=== PATIENT | male | born 1930 | race Caucasian/White ===

== ENCOUNTER 2017-08-27 07:18 | Day surgery (SDC) | payer OTHER, BC ==
[2017-08-26 12:28] VITALS: BMI 28.7
[2017-08-27] MEDS ORDERED: MIDAZOLAM HCL 2 MG/2 ML SINGLE DOSE VIAL ONE (09:20)
[2017-08-27] MEDS ORDERED: PROPOFOL 20 ML ONE ×2 (09:20→09:21)
[2017-08-27] MEDS ORDERED: SODIUM CHLORIDE 0.9% P/F 10 ML VIAL IJ ONE (09:22)
[2017-08-27] MEDS ORDERED: ceFAZolin SODIUM 1 GM VIAL ONE (09:22)
[2017-08-27] MEDS ORDERED: LIDOCAINE HCL/PF 2% SDV 5ML VIAL ONE (09:22)
[2017-08-27] MEDS ORDERED: GLYCOPYRROLATE 0.2 MG/1 ML VIAL ONE (09:29)
[2017-08-27] MEDS ORDERED: DEXAMETHASONE SOD PHOSPHATE 4 MG/1 ML VIAL ONE (09:29)
[2017-08-27] MEDS ORDERED: ceFAZolin SODIUM 1 GM VIAL IVPB ONE ×2 (09:31)
[2017-08-27] MEDS ORDERED: oxyCODONE HCL 5 MG TABLET PO PRN (09:56)
--- NOTE | 2017-08-27 09:58 | OP ---
Operative Note - Note: Operative Date: 08/27/17 Pre-Operative Diagnosis: bladder tumor Operation: bipolar TURBT Findings: papillary tumor left trigone and possible left prostatic urethra Post-Operative Diagnosis: Same as Pre-op Surgeon: Robby Camp Anesthesia: General Specimens Removed: bladder tumor Estimated Blood Loss (mls): 5 Drains & Tubes with Location: 22fr emmanuel Operative Report Dictated: Yes
[2017-08-27] MEDS ORDERED: ELECTROLYTE-148 SOLN 1,000 ML IV SCH (10:00)
[2017-08-27] MEDS ORDERED: ONDANSETRON 4 MG/2 ML VIAL IVPUSH PRN (10:05)
[2017-08-27] MEDS ORDERED: PROMETHAZINE HCL 25 MG/1 ML VIAL IVPUSH PRN (10:05)
[2017-08-27] MEDS ORDERED: LACTATED RINGERS SOLUTION 1,000 ML IV SCH (10:15)
[2017-08-27 10:55] VITALS: TEMP 98
[2017-08-27 12:30] VITALS: BP 131/66; PULSE 59
--- NOTE | 2017-08-27 14:37 | OP ---
DATE OF OPERATION: 08/27/2017 PREOPERATIVE DIAGNOSIS: Bladder tumor. POSTOPERATIVE DIAGNOSIS: Bladder tumor. PROCEDURE: Transurethral resection of bladder tumor. SURGEON: Abigail Dan MD INDICATION: Patient is an 87-year-old male with recurrent TCC of the bladder who on recent surveillance cystoscopy noted to have a recurrent tumor in the bladder. He was taken to the OR for resection. DESCRIPTION OF PROCEDURE: Patient taken to the OR, placed supine on the operating table with cardiac monitoring administered. General anesthesia was established. He was prepped and draped in dorsal lithotomy position. He was given 1 g of Ancef. At this point the 26 sheath bipolar resectoscope was inserted into urethra with the visual obturator. Anterior urethra was normal. Prostatic urethra was 3-4 cm and visually occlusive. There was also a very small what appeared to be possible papillary lesion on the right lateral lobe of the prostate noted on the way in. The bladder was then visualized. A papillary lesion was noted at the trigone in the bladder inferior to the left ureteral orifice and just superior to the bladder neck. This is resected in its entirety and sent to pathology for analysis. The base of the tumor is fulgurated. Entire inspection of bladder revealed no evidence of any residual tumors. The papillary-looking lesion on the right lateral lobe of the prostate was also resected and sent separately to pathology. All bleeding sites were fulgurated. Resectoscope was then removed and a 20-Faroese Bishop then was placed to straight drainage. Clear urine was retrieved. Patient was awakened from anesthesia and transferred to recovery room in stable condition. There were no complications. Estimated blood loss was minimal. ABIGAIL DAN M.D. [id number]
--- NOTE | 2017-08-28 15:44 | PATH ---
Surgical Pathology Report Patient Name: STEPHANI MEZA [facility]. Rec. #: [id number] /Age/Gender: 1930 (Age: 87) / M Account: [id number] Location: [facility] SURGICAL Taken: 08/27/2017 Received: 08/27/2017 Reported: 08/28/2017 Physicians: Robby Camp M.D. Specimen(s) Received A: BLADDER TUMOR B: BIOPSY OF PROSTATE URETHRA Clinical History Malignant neoplasm of overlapping sites of bladder Final Diagnosis A. BLADDER TUMOR, TUR: NONINVASIVE LOW GRADE PAPILLARY UROTHELIAL CARCINOMA. NO FLAT UROTHELIAL CARCINOMA IN SITU IDENTIFIED. NO MUSCULARIS PROPRIA/DETRUSOR MUSCLE IDENTIFIED. B. PROSTATIC URETHRA, BIOPSY: BENIGN PROSTATIC TISSUE WITH BENIGN PROSTATIC HYPERPLASIA AND CORPORA AMYLACEA. NO CARCINOMA IDENTIFIED. Electronically Signed Tone Brewer M.D. Gross Description A. Received in formalin labeled "bladder tumor," is a 0.4 cm in greatest dimension noyola soft tissue fragment. The specimen is submitted in toto in one cassette. B. Received in formalin labeled "biopsy of prostatic urethra, rule out transitional cell," is a 0.4 cm in greatest dimension noyola-pink soft tissue fragment. The specimen is submitted in toto in one cassette. DL08/27/2017 saudi08/27/2017
== END 2017-08-27 12:15 | disposition home or self-care (01) ==
LOC: JASU-SURG 07:18
PROVIDERS: ATTEND Urology
PROC: 0TBB8ZZ Excision of Bladder, Via Natural or Artificial Opening Endoscopic (ICD-10-PCS; principal; 2017-08-27 08:30)
DX: C67.9 Malignant neoplasm of bladder, unspecified (principal)
CPT/HCPCS: 88305-TC; 88307-TC; 94760

== ENCOUNTER 2017-11-12 07:32 | Day surgery (SDC) | payer OTHER, BC ==
[2017-11-12] MEDS ORDERED: ZOLEDRONIC ACID 3.5 MG in SODIUM CHLORIDE 100 ML IVPB ONE (10:00)
[2017-11-12 10:02] LABS: BASO % 0.6 % (0-2.0); EOS % 1.6 % (0-4.5); HEMOGLOBIN 14.6 GM/dL (11.7-16.9); LYMPH % 11.4 % (8-40); MCH 32.2 pg (25.7-33.7); MEAN CELL VOLUME 94.7 fl (80-96); MEAN PLT VOLUME 9.3 fl (7.5-11.1); MONO % 9.8 % (3.8-10.2); NEUT % 76.6 % (42.8-82.8); PLATELET COUNT 120 K/MM3 (134-434); RBC 4.54 M/mm3 (4.00-5.60); RDW 13.5 % (11.9-15.9); WHITE BLOOD COUNT 7.8 K/mm3 (4.0-10.0)
[2017-11-12 10:27] LABS: ALBUMIN 3.6 g/dl (3.4-5.0); ANION GAP 5 (8-16); BILIRUBIN,DIRECT 0.4 mg/dL (0.0-0.2); BILIRUBIN,TOTAL 1.5 mg/dL (0.2-1.0); BLOOD UREA NITROGEN 22 mg/dL (7-18); CHLORIDE 107 mmol/L (98-107); CO2 27 mmol/L (21-32); CREATININE 1.3 mg/dL (0.7-1.3); GLUCOSE,RANDOM 108 mg/dL (74-106); MAGNESIUM 2.3 mg/dL (1.8-2.4); POTASSIUM 3.8 mmol/L (3.5-5.1); SGOT/AST 30 U/L (15-37); SGPT/ALT 25 U/L (12-78); SODIUM 139 mmol/L (136-145); TOT PROT 6.7 g/dl (6.4-8.2)
[2017-11-12 10:30] LABS: ALK PHOS 220 U/L (45-117)
[2017-11-12] MEDS ORDERED: DEXAMETHASONE SOD PHOSPHATE 10 MG/1 ML VIAL IVPB ONE (11:30)
[2017-11-12 16:41] VITALS: TEMP 97.6
[2017-11-12 16:42] VITALS: BP 117/54; PULSE 39
== END 2017-11-12 13:00 | disposition home or self-care (01) ==
LOC: JONCCHEMO 07:32 → J7W 10:51 → JONCCHEMO 13:00
PROVIDERS: ATTEND Internal Medicine Hematology & Oncology
PROC: 3E033GC Introduction of Other Therapeutic Substance into Peripheral Vein, Percutaneous Approach (ICD-10-PCS; principal; 2017-11-12)
DX: C34.90 Malignant neoplasm of unspecified part of unspecified bronchus or lung (principal); C79.51 Secondary malignant neoplasm of bone
CPT/HCPCS: 36415; 80053; 80076; 83735; 85025; 96365; 96366; 96367; 96375; 96417; J1100; J3489

== ENCOUNTER 2017-12-14 07:19 | Day surgery (SDC) | payer OTHER, BC ==
[2017-12-14] MEDS ORDERED: ZOLEDRONIC ACID 3.5 MG in SODIUM CHLORIDE 100 ML IVPB ONE (09:00)
[2017-12-14 09:41] LABS: BASO % 0.5 % (0-2.0); EOS % 0.5 % (0-4.5); HEMATOCRIT 40.4 % (35.4-49); HEMOGLOBIN 13.7 GM/dL (11.7-16.9); LYMPH % 7.6 % (8-40); MCH 32.2 pg (25.7-33.7); MCHC 33.9 g/dl (32.0-35.9); MEAN PLT VOLUME 9.6 fl (7.5-11.1); NEUT % 79.4 % (42.8-82.8); PLATELET COUNT 63 K/MM3 (134-434); RBC 4.25 M/mm3 (4.00-5.60); RDW 14.5 % (11.9-15.9); WHITE BLOOD COUNT 6.1 K/mm3 (4.0-10.0)
[2017-12-14 10:10] LABS: ALBUMIN 3.4 g/dl (3.4-5.0); ANION GAP 5 (8-16); BLOOD UREA NITROGEN 22 mg/dL (7-18); CALCIUM 7.6 mg/dL (8.5-10.1); CHLORIDE 106 mmol/L (98-107); CO2 26 mmol/L (21-32); GLUCOSE,RANDOM 75 mg/dL (74-106); MAGNESIUM 2.6 mg/dL (1.8-2.4); POTASSIUM 4.5 mmol/L (3.5-5.1); SODIUM 137 mmol/L (136-145)
[2017-12-14 10:13] LABS: ALK PHOS 630 U/L (45-117); BILIRUBIN,DIRECT 0.2 mg/dL (0.0-0.2); BILIRUBIN,TOTAL 0.8 mg/dL (0.2-1.0); CREATININE 1.1 mg/dL (0.7-1.3); SGOT/AST 23 U/L (15-37); SGPT/ALT 30 U/L (12-78); TOT PROT 6.3 g/dl (6.4-8.2)
[2017-12-14 12:45] VITALS: TEMP 97.7
[2017-12-14 12:46] VITALS: BP 115/55; PULSE 35
== END 2017-12-14 11:40 | disposition home or self-care (01) ==
LOC: JONCCHEMO 07:19 → J7W 10:08 → JONCCHEMO 11:40
PROVIDERS: ATTEND Internal Medicine Hematology & Oncology
PROC: 3E033GC Introduction of Other Therapeutic Substance into Peripheral Vein, Percutaneous Approach (ICD-10-PCS; principal; 2017-12-14)
DX: C34.90 Malignant neoplasm of unspecified part of unspecified bronchus or lung (principal); C79.51 Secondary malignant neoplasm of bone
CPT/HCPCS: 36415; 80053; 80076; 83735; 85025; 96365; J3489

== ENCOUNTER 2018-01-11 07:48 | Day surgery (SDC) | payer OTHER, BC ==
[2018-01-11 09:04] LABS: BASO % 0.7 % (0-2.0); EOS % 0.7 % (0-4.5); HEMATOCRIT 38.7 % (35.4-49); LYMPH % 18.3 % (8-40); MCH 31.8 pg (25.7-33.7); MCHC 33.7 g/dl (32.0-35.9); MEAN CELL VOLUME 94.3 fl (80-96); MEAN PLT VOLUME 8.3 fl (7.5-11.1); MONO % 12.6 % (3.8-10.2); NEUT % 67.7 % (42.8-82.8); PLATELET COUNT 97 K/MM3 (134-434); RDW 14.4 % (11.9-15.9); WHITE BLOOD COUNT 4.2 K/mm3 (4.0-10.0)
[2018-01-11 09:34] LABS: ANION GAP 7 (8-16); BLOOD UREA NITROGEN 13 mg/dL (7-18); CALCIUM 8.3 mg/dL (8.5-10.1); CHLORIDE 107 mmol/L (98-107); CO2 27 mmol/L (21-32); CREATININE 0.8 mg/dL (0.7-1.3); GLUCOSE,RANDOM 106 mg/dL (74-106); SGOT/AST 22 U/L (15-37); SGPT/ALT 26 U/L (12-78); SODIUM 141 mmol/L (136-145)
[2018-01-11 09:36] LABS: ALK PHOS 200 U/L (45-117); BILIRUBIN,TOTAL 0.5 mg/dL (0.2-1.0); TOT PROT 5.9 g/dl (6.4-8.2)
[2018-01-11 09:57] LABS: BILIRUBIN,DIRECT 0.3 mg/dL (0.0-0.2); MAGNESIUM 2.2 mg/dL (1.8-2.4)
[2018-01-11] MEDS ORDERED: ZOLEDRONIC ACID 3.5 MG in SODIUM CHLORIDE 100 ML IVPB ONE (10:00)
[2018-01-11 10:32] VITALS: TEMP 98.2
[2018-01-11 10:33] VITALS: BP 105/47
[2018-01-11 15:46] VITALS: PULSE 46
== END 2018-01-11 11:00 | disposition home or self-care (01) ==
LOC: JONCCHEMO 07:48 → J7W 09:17 → JONCCHEMO 11:00
PROVIDERS: ATTEND Internal Medicine Hematology & Oncology
PROC: 3E033GC Introduction of Other Therapeutic Substance into Peripheral Vein, Percutaneous Approach (ICD-10-PCS; principal; 2018-01-11)
DX: C34.90 Malignant neoplasm of unspecified part of unspecified bronchus or lung (principal); C79.51 Secondary malignant neoplasm of bone
CPT/HCPCS: 36415; 80053; 80076; 83735; 85025; 96365; 96417; J3489

== ENCOUNTER 2018-02-08 08:16 | Day surgery (SDC) | payer OTHER, BC ==
[2018-02-08 08:21] VITALS: PULSE 51
[2018-02-08 09:36] LABS: BASO % 0.7 % (0-2.0); EOS % 0.8 % (0-4.5); HEMATOCRIT 37.9 % (35.4-49); HEMOGLOBIN 12.7 GM/dL (11.7-16.9); LYMPH % 22.4 % (8-40); MCH 31.9 pg (25.7-33.7); MCHC 33.5 g/dl (32.0-35.9); MONO % 15.5 % (3.8-10.2); NEUT % 60.6 % (42.8-82.8); PLATELET COUNT 92 K/MM3 (134-434); RBC 3.99 M/mm3 (4.00-5.60); WHITE BLOOD COUNT 3.3 K/mm3 (4.0-10.0)
[2018-02-08] MEDS ORDERED: ZOLEDRONIC ACID 3.5 MG in SODIUM CHLORIDE 100 ML IVPB ONE (10:00)
[2018-02-08 10:22] LABS: ALBUMIN 3.3 g/dl (3.4-5.0); ANION GAP 7 (8-16); BILIRUBIN,DIRECT 0.2 mg/dL (0.0-0.2); BLOOD UREA NITROGEN 15 mg/dL (7-18); CALCIUM 8.2 mg/dL (8.5-10.1); CHLORIDE 108 mmol/L (98-107); CO2 27 mmol/L (21-32); GLUCOSE,RANDOM 90 mg/dL (74-106); MAGNESIUM 2.3 mg/dL (1.8-2.4); POTASSIUM 4.3 mmol/L (3.5-5.1); SODIUM 142 mmol/L (136-145)
[2018-02-08 10:25] LABS: ALK PHOS 151 U/L (45-117); BILIRUBIN,TOTAL 0.7 mg/dL (0.2-1.0); CREATININE 1.1 mg/dL (0.7-1.3); SGOT/AST 20 U/L (15-37); SGPT/ALT 17 U/L (12-78); TOT PROT 6.1 g/dl (6.4-8.2)
[2018-02-08 15:47] VITALS: BP 117/61; TEMP 97.8
== END 2018-02-08 12:10 | disposition home or self-care (01) ==
LOC: JONCCHEMO 08:16 → J7W 09:17 → JONCCHEMO 12:10
PROVIDERS: ATTEND Internal Medicine Hematology & Oncology
PROC: 3E033GC Introduction of Other Therapeutic Substance into Peripheral Vein, Percutaneous Approach (ICD-10-PCS; principal; 2018-02-08)
DX: C34.90 Malignant neoplasm of unspecified part of unspecified bronchus or lung (principal); C79.51 Secondary malignant neoplasm of bone
CPT/HCPCS: 36415; 80053; 80076; 83735; 85025; 96365; 96417; J3489

== ENCOUNTER 2018-04-05 07:47 | Day surgery (SDC) | payer OTHER, BC ==
[2018-04-05] MEDS ORDERED: ZOLEDRONIC ACID 3.5 MG in SODIUM CHLORIDE 100 ML IVPB ONE (09:00)
[2018-04-05 09:06] LABS: BASO % 0.8 % (0-2.0); EOS % 0.6 % (0-4.5); HEMATOCRIT 39.7 % (35.4-49); HEMOGLOBIN 13.1 GM/dL (11.7-16.9); MCH 30.9 pg (25.7-33.7); MCHC 33.1 g/dl (32.0-35.9); MEAN CELL VOLUME 93.5 fl (80-96); MEAN PLT VOLUME 9.1 fl (7.5-11.1); MONO % 13.1 % (3.8-10.2); NEUT % 68.5 % (42.8-82.8); PLATELET COUNT 81 K/MM3 (134-434); RBC 4.24 M/mm3 (4.00-5.60); RDW 13.6 % (11.9-15.9); WHITE BLOOD COUNT 4.4 K/mm3 (4.0-10.0)
[2018-04-05 09:36] LABS: ALBUMIN 3.7 g/dl (3.4-5.0); ANION GAP 8 MMOL/L (8-16); BLOOD UREA NITROGEN 22 mg/dL (7-18); CALCIUM 8.9 mg/dL (8.5-10.1); CHLORIDE 105 mmol/L (98-107); CO2 28 mmol/L (21-32); CREATININE 0.9 mg/dL (0.7-1.3); GLUCOSE,RANDOM 89 mg/dL (74-106); MAGNESIUM 2.5 mg/dL (1.8-2.4); POTASSIUM 4.4 mmol/L (3.5-5.1); SGOT/AST 22 U/L (15-37); SGPT/ALT 18 U/L (12-78); SODIUM 141 mmol/L (136-145)
[2018-04-05 09:39] LABS: ALK PHOS 110 U/L (45-117); BILIRUBIN,TOTAL 0.6 mg/dL (0.2-1.0); TOT PROT 6.6 g/dl (6.4-8.2)
[2018-04-05 09:40] LABS: BILIRUBIN,DIRECT 0.2 mg/dL (0.0-0.2); BILIRUBIN,TOTAL 0.6 mg/dL (0.2-1.0); TOT PROT 6.7 g/dl (6.4-8.2)
[2018-04-05 09:50] VITALS: TEMP 98
[2018-04-05 14:07] VITALS: BP 123/61; PULSE 50
== END 2018-04-05 11:00 | disposition home or self-care (01) ==
LOC: JONCCHEMO 07:47 → J7W 09:43 → JONCCHEMO 11:00
PROVIDERS: ATTEND Internal Medicine Hematology & Oncology
PROC: 3E033GC Introduction of Other Therapeutic Substance into Peripheral Vein, Percutaneous Approach (ICD-10-PCS; principal; 2018-04-05)
DX: C34.90 Malignant neoplasm of unspecified part of unspecified bronchus or lung (principal); Z85.51 Personal history of malignant neoplasm of bladder
CPT/HCPCS: 36415; 80053; 80076; 83735; 85025; 96365; 96417; J3489

== ENCOUNTER 2018-05-03 07:50 | Day surgery (SDC) | payer OTHER, BC ==
[2018-05-03 09:28] LABS: BASO % 0.5 % (0-2.0); EOS % 0.7 % (0-4.5); HEMATOCRIT 38.1 % (35.4-49); HEMOGLOBIN 12.7 GM/dL (11.7-16.9); LYMPH % 18.8 % (8-40); MCH 31.2 pg (25.7-33.7); MCHC 33.4 g/dl (32.0-35.9); MEAN CELL VOLUME 93.4 fl (80-96); MEAN PLT VOLUME 9.5 fl (7.5-11.1); MONO % 11.7 % (3.8-10.2); NEUT % 68.3 % (42.8-82.8); PLATELET COUNT 84 K/MM3 (134-434); RBC 4.08 M/mm3 (4.00-5.60); WHITE BLOOD COUNT 4.4 K/mm3 (4.0-10.0)
[2018-05-03 09:55] LABS: ALBUMIN 3.6 g/dl (3.4-5.0); ALK PHOS 107 U/L (45-117); ANION GAP 3 MMOL/L (8-16); BILIRUBIN,DIRECT 0.2 mg/dL (0.0-0.2); BILIRUBIN,TOTAL 0.6 mg/dL (0.2-1); BLOOD UREA NITROGEN 19 mg/dL (7-18); CALCIUM 8.9 mg/dL (8.5-10.1); CHLORIDE 109 mmol/L (98-107); CO2 26 mmol/L (21-32); CREATININE 1.1 mg/dL (0.55-1.3); GLUCOSE,RANDOM 98 mg/dL (74-106); MAGNESIUM 2.4 mg/dL (1.8-2.4); POTASSIUM 4.8 mmol/L (3.5-5.1); SGOT/AST 18 U/L (15-37); SGPT/ALT 18 U/L (13-61); SODIUM 138 mmol/L (136-145); TOT PROT 6.6 g/dl (6.4-8.2)
[2018-05-03] MEDS ORDERED: ZOLEDRONIC ACID 3.5 MG in SODIUM CHLORIDE 100 ML IVPB ONE (10:00)
[2018-05-03 16:00] VITALS: TEMP 97.5
[2018-05-03 16:03] VITALS: BP 126/57; PULSE 54
== END 2018-05-03 11:00 | disposition home or self-care (01) ==
LOC: JONCCHEMO 07:50 → J7W 10:01 → JONCCHEMO 11:00
PROVIDERS: ATTEND Internal Medicine Hematology & Oncology
PROC: 3E033GC Introduction of Other Therapeutic Substance into Peripheral Vein, Percutaneous Approach (ICD-10-PCS; principal; 2018-05-03)
DX: C34.92 Malignant neoplasm of unspecified part of left bronchus or lung (principal); C79.51 Secondary malignant neoplasm of bone; D69.59 Other secondary thrombocytopenia
CPT/HCPCS: 36415; 80053; 80076; 83735; 85025; 96365; 96417; J3489

== ENCOUNTER 2018-05-31 07:17 | Day surgery (SDC) | payer OTHER, BC ==
[2018-05-31 09:40] LABS: BASO % 0.4 % (0-2.0); EOS % 0.4 % (0-4.5); HEMATOCRIT 38.5 % (35.4-49); HEMOGLOBIN 13.6 GM/dL (11.7-16.9); LYMPH % 15.4 % (8-40); MCH 32.6 pg (25.7-33.7); MCHC 35.3 g/dl (32.0-35.9); MEAN CELL VOLUME 92.4 fl (80-96); MEAN PLT VOLUME 9.4 fl (7.5-11.1); MONO % 12.3 % (3.8-10.2); NEUT % 71.5 % (42.8-82.8); PLATELET COUNT 98 K/MM3 (134-434); RBC 4.17 M/mm3 (4.00-5.60); RDW 14.3 % (11.9-15.9); WHITE BLOOD COUNT 5.1 K/mm3 (4.0-10.0)
[2018-05-31] MEDS ORDERED: ZOLEDRONIC ACID 3.5 MG in SODIUM CHLORIDE 100 ML IVPB ONE (10:00)
[2018-05-31 10:04] LABS: ALBUMIN 3.7 g/dl (3.4-5.0); ALK PHOS 114 U/L (45-117); ANION GAP 6 MMOL/L (8-16); BILIRUBIN,DIRECT 0.2 mg/dL (0.0-0.2); BILIRUBIN,TOTAL 0.5 mg/dL (0.2-1); BLOOD UREA NITROGEN 21 mg/dL (7-18); CALCIUM 8.9 mg/dL (8.5-10.1); CHLORIDE 103 mmol/L (98-107); CO2 29 mmol/L (21-32); GLUCOSE,RANDOM 80 mg/dL (74-106); MAGNESIUM 2.5 mg/dL (1.8-2.4); POTASSIUM 4.5 mmol/L (3.5-5.1); SGOT/AST 25 U/L (15-37); SGPT/ALT 19 U/L (13-61); SODIUM 138 mmol/L (136-145); TOT PROT 6.9 g/dl (6.4-8.2)
[2018-05-31 16:00] VITALS: BP 120/50; PULSE 52; TEMP 97.9
== END 2018-05-31 10:40 | disposition home or self-care (01) ==
LOC: JONCCHEMO 07:17 → J7W 09:49 → JONCCHEMO 10:40
PROVIDERS: ATTEND Internal Medicine Hematology & Oncology
PROC: 3E033GC Introduction of Other Therapeutic Substance into Peripheral Vein, Percutaneous Approach (ICD-10-PCS; principal; 2018-05-31)
DX: C34.92 Malignant neoplasm of unspecified part of left bronchus or lung (principal); C79.51 Secondary malignant neoplasm of bone
CPT/HCPCS: 36415; 80053; 80076; 83735; 85025; 96365; 96417; J3489

== ENCOUNTER 2018-06-28 07:20 | Day surgery (SDC) | payer OTHER, BC ==
[2018-06-28 09:03] LABS: BASO % 0.5 % (0-2.0); EOS % 1.3 % (0-4.5); HEMOGLOBIN 12.4 GM/dL (11.7-16.9); LYMPH % 12.8 % (8-40); MCH 30.3 pg (25.7-33.7); MCHC 32.6 g/dl (32.0-35.9); MEAN CELL VOLUME 92.8 fl (80-96); MEAN PLT VOLUME 8.5 fl (7.5-11.1); MONO % 12.4 % (3.8-10.2); PLATELET COUNT 106 K/MM3 (134-434); RDW 14.3 % (11.9-15.9); WHITE BLOOD COUNT 5.6 K/mm3 (4.0-10.0)
[2018-06-28 09:32] LABS: ALBUMIN 3.5 g/dl (3.4-5.0); ALK PHOS 111 U/L (45-117); ANION GAP 6 MMOL/L (8-16); BILIRUBIN,DIRECT 0.2 mg/dL (0.0-0.2); BILIRUBIN,TOTAL 0.6 mg/dL (0.2-1); BLOOD UREA NITROGEN 22 mg/dL (7-18); CALCIUM 9.2 mg/dL (8.5-10.1); CHLORIDE 105 mmol/L (98-107); CO2 29 mmol/L (21-32); CREATININE 1.1 mg/dL (0.55-1.3); GLUCOSE,RANDOM 89 mg/dL (74-106); MAGNESIUM 2.4 mg/dL (1.8-2.4); POTASSIUM 4.6 mmol/L (3.5-5.1); SGOT/AST 19 U/L (15-37); SGPT/ALT 17 U/L (13-61); SODIUM 139 mmol/L (136-145); TOT PROT 6.6 g/dl (6.4-8.2)
[2018-06-28] MEDS ORDERED: ZOLEDRONIC ACID 4 MG in SODIUM CHLORIDE 100 ML IVPB ONE (10:45)
[2018-06-28] MEDS ORDERED: SODIUM CHLORIDE 1,000 ML IV ONE (10:45)
[2018-06-28] MEDS ORDERED: HYDROCORTISONE SOD SUCCINATE 100 MG/2 ML VIAL IVPB PRN (10:49)
[2018-06-28] MEDS ORDERED: EPINEPHrine 1:10,000 (P-F SYR) 1 MG/10 ML DISP.SYRIN IM PRN (10:54)
[2018-06-28 13:01] VITALS: TEMP 97.6
[2018-06-28 13:04] VITALS: BP 111/67; PULSE 60
== END 2018-06-28 13:00 | disposition home or self-care (01) ==
LOC: JONCCHEMO 07:20 → J7W 09:42 → JONCCHEMO 13:00
PROVIDERS: ATTEND Internal Medicine Hematology & Oncology
PROC: 3E033GC Introduction of Other Therapeutic Substance into Peripheral Vein, Percutaneous Approach (ICD-10-PCS; principal; 2018-06-28)
DX: C34.92 Malignant neoplasm of unspecified part of left bronchus or lung (principal); C79.51 Secondary malignant neoplasm of bone
CPT/HCPCS: 36415; 80053; 80076; 83735; 85025; 96365; 96417; J3489

== ENCOUNTER 2018-08-02 06:15 | Day surgery (SDC) | payer OTHER, BC ==
[2018-08-02 09:41] LABS: BASO % 0.7 % (0-2.0); EOS % 1.6 % (0-4.5); HEMATOCRIT 37.6 % (35.4-49); HEMOGLOBIN 13.2 GM/dL (11.7-16.9); LYMPH % 11.7 % (8-40); MCH 32.2 pg (25.7-33.7); MCHC 35.2 g/dl (32.0-35.9); MEAN CELL VOLUME 91.5 fl (80-96); MEAN PLT VOLUME 8.6 fl (7.5-11.1); MONO % 13.4 % (3.8-10.2); NEUT % 72.6 % (42.8-82.8); PLATELET COUNT 138 K/MM3 (134-434); RBC 4.11 M/mm3 (4.00-5.60); RDW 13.8 % (11.9-15.9); WHITE BLOOD COUNT 6.7 K/mm3 (4.0-10.0)
[2018-08-02] MEDS ORDERED: ZOLEDRONIC ACID 3.5 MG in SODIUM CHLORIDE 100 ML IVPB ONE (10:00)
[2018-08-02 10:04] LABS: ALBUMIN 3.4 g/dl (3.4-5.0); ALK PHOS 114 U/L (45-117); ANION GAP 8 MMOL/L (8-16); BILIRUBIN,DIRECT 0.2 mg/dL (0.0-0.2); BILIRUBIN,TOTAL 0.6 mg/dL (0.2-1); BLOOD UREA NITROGEN 19 mg/dL (7-18); CALCIUM 8.8 mg/dL (8.5-10.1); CHLORIDE 107 mmol/L (98-107); CO2 28 mmol/L (21-32); CREATININE 1.1 mg/dL (0.55-1.3); GLUCOSE,RANDOM 84 mg/dL (74-106); MAGNESIUM 2.3 mg/dL (1.8-2.4); POTASSIUM 4.4 mmol/L (3.5-5.1); SGOT/AST 21 U/L (15-37); SGPT/ALT 17 U/L (13-61); SODIUM 144 mmol/L (136-145); TOT PROT 6.7 g/dl (6.4-8.2)
[2018-08-02 15:45] VITALS: TEMP 97.9
[2018-08-02 15:46] VITALS: BP 120/60; PULSE 55
== END 2018-08-02 12:00 | disposition home or self-care (01) ==
LOC: JONCCHEMO 06:15 → J7W 10:27 → JONCCHEMO 12:00
PROVIDERS: ATTEND Internal Medicine Hematology & Oncology
PROC: 3E033GC Introduction of Other Therapeutic Substance into Peripheral Vein, Percutaneous Approach (ICD-10-PCS; principal; 2018-08-02)
DX: C34.92 Malignant neoplasm of unspecified part of left bronchus or lung (principal); C79.51 Secondary malignant neoplasm of bone
CPT/HCPCS: 36415; 80048; 80076; 82378; 83735; 85025; 96365; 96417; J3489

== ENCOUNTER 2018-08-10 06:27 | Day surgery (SDC) | payer OTHER, BC ==
[2018-08-10] MEDS ORDERED: SODIUM CHLORIDE 250 ML IV ONE ×2 (08:00→10:00)
[2018-08-10] MEDS ORDERED: DEXAMETHASONE SODIUM PHOSPHATE 20 MG in SODIUM CHLORIDE 50 ML IVPB ONE (08:30)
[2018-08-10] MEDS ORDERED: NIVOLUMAB 200 MG, NIVOLUMAB 40 MG in SODIUM CHLORIDE 100 ML IVPB ONE (09:00)
[2018-08-10 09:50] LABS: BASO % 0.5 % (0-2.0); EOS % 1.3 % (0-4.5); HEMATOCRIT 36.2 % (35.4-49); HEMOGLOBIN 12.7 GM/dL (11.7-16.9); LYMPH % 9.4 % (8-40); MCH 32.1 pg (25.7-33.7); MCHC 35.1 g/dl (32.0-35.9); MEAN CELL VOLUME 91.4 fl (80-96); MEAN PLT VOLUME 8.2 fl (7.5-11.1); MONO % 13.6 % (3.8-10.2); NEUT % 75.2 % (42.8-82.8); PLATELET COUNT 186 K/MM3 (134-434); RBC 3.96 M/mm3 (4.00-5.60); RDW 13.3 % (11.9-15.9); WHITE BLOOD COUNT 6.6 K/mm3 (4.0-10.0)
[2018-08-10 10:19] LABS: ALK PHOS 127 U/L (45-117); ANION GAP 7 MMOL/L (8-16); BILIRUBIN,DIRECT 0.2 mg/dL (0.0-0.2); BILIRUBIN,TOTAL 0.6 mg/dL (0.2-1); BLOOD UREA NITROGEN 16 mg/dL (7-18); CALCIUM 9.2 mg/dL (8.5-10.1); CHLORIDE 102 mmol/L (98-107); CO2 26 mmol/L (21-32); GLUCOSE,RANDOM 101 mg/dL (74-106); MAGNESIUM 2.3 mg/dL (1.8-2.4); POTASSIUM 4.4 mmol/L (3.5-5.1); SGOT/AST 19 U/L (15-37); SGPT/ALT 19 U/L (13-61); SODIUM 135 mmol/L (136-145); TOT PROT 6.4 g/dl (6.4-8.2)
[2018-08-10 14:24] VITALS: TEMP 97.9
[2018-08-10 17:01] VITALS: BP 111/46; PULSE 40
== END 2018-08-10 13:15 | disposition home or self-care (01) ==
LOC: JONCCHEMO 06:27 → J7W 09:13 → JONCCHEMO 13:15
PROVIDERS: ATTEND Internal Medicine Hematology & Oncology
DX: Z51.11 Encounter for antineoplastic chemotherapy (principal); C34.92 Malignant neoplasm of unspecified part of left bronchus or lung; C79.51 Secondary malignant neoplasm of bone
CPT/HCPCS: 36415; 80048; 80076; 82378; 83735; 85025; 96361; 96375; 96413; J9299

== ENCOUNTER 2018-08-30 06:31 | Day surgery (SDC) | payer OTHER, BC ==
[2018-08-30] MEDS ORDERED: ZOLEDRONIC ACID 3.5 MG in SODIUM CHLORIDE 100 ML IVPB ONE (09:00)
[2018-08-30] MEDS ORDERED: SODIUM CHLORIDE 250 ML IV ONE ×2 (09:00→11:30)
[2018-08-30] MEDS ORDERED: DEXAMETHASONE SODIUM PHOSPHATE 20 MG in DEXTROSE 5%-WATER - 50 ML IVPB ONE (10:00)
[2018-08-30] MEDS ORDERED: NIVOLUMAB 200 MG, NIVOLUMAB 40 MG in SODIUM CHLORIDE 100 ML IVPB ONE (10:30)
[2018-08-30 11:35] LABS: BASO % 0.4 % (0-2.0); EOS % 0.2 % (0-4.5); HEMATOCRIT 36.4 % (35.4-49); HEMOGLOBIN 12.8 GM/dL (11.7-16.9); LYMPH % 8.2 % (8-40); MCH 32.5 pg (25.7-33.7); MCHC 35.3 g/dl (32.0-35.9); MONO % 11.6 % (3.8-10.2); NEUT % 79.6 % (42.8-82.8); PLATELET COUNT 155 K/MM3 (134-434); RBC 3.96 M/mm3 (4.00-5.60); RDW 13.4 % (11.9-15.9); WHITE BLOOD COUNT 9.6 K/mm3 (4.0-10.0)
[2018-08-30 12:11] LABS: ALBUMIN 3.2 g/dl (3.4-5.0); ALK PHOS 120 U/L (45-117); ANION GAP 5 MMOL/L (8-16); BILIRUBIN,DIRECT 0.2 mg/dL (0.0-0.2); BILIRUBIN,TOTAL 0.5 mg/dL (0.2-1); BLOOD UREA NITROGEN 17 mg/dL (7-18); CALCIUM 9.3 mg/dL (8.5-10.1); CHLORIDE 98 mmol/L (98-107); CO2 30 mmol/L (21-32); CREATININE 1.1 mg/dL (0.55-1.3); GLUCOSE,RANDOM 87 mg/dL (74-106); MAGNESIUM 2.5 mg/dL (1.8-2.4); POTASSIUM 4.5 mmol/L (3.5-5.1); SGOT/AST 33 U/L (15-37); SGPT/ALT 28 U/L (13-61); SODIUM 134 mmol/L (136-145); TOT PROT 6.6 g/dl (6.4-8.2)
[2018-08-30 17:14] VITALS: TEMP 98.5
[2018-08-30 17:36] VITALS: BP 140/61; PULSE 49
== END 2018-08-30 16:45 | disposition home or self-care (01) ==
LOC: JONCCHEMO 06:31 → J7W 10:55 → JONCCHEMO 16:45
PROVIDERS: ATTEND Internal Medicine Hematology & Oncology
DX: Z51.11 Encounter for antineoplastic chemotherapy (principal); C34.92 Malignant neoplasm of unspecified part of left bronchus or lung; C79.51 Secondary malignant neoplasm of bone
CPT/HCPCS: 36415; 80048; 80076; 83735; 85025; 96361; 96367; 96375; 96413; 96417; J3489; J9299

== ENCOUNTER 2018-09-14 05:45 | Day surgery (SDC) | payer OTHER, BC | END 2018-09-20 | LOC: JONCCHEMO 05:45 ==

== ENCOUNTER 2018-09-23 12:28 | Inpatient (IN) | payer OTHER, BC ==
--- NOTE | 2018-09-23 13:19 | PDOC ---
History of Present Illness - General Stated Complaint: FALL Time Seen by Provider: 09/23/18 12:47 - History of Present Illness Initial Comments: Bal Coleman is an 88yo man with a PMH of stage 4 lung CA, bradycardia ( evaluated by Dr Emmanuel, had a "monitor" at home), hypotension who presents after a fall at home with possible syncope. He reports that he was sitting up in bed, and he "blacked out." He denies any symptoms preceding the event, stating that it came on "like flipping a lightswitch." He did not have any chest pain, unusual shortness of breath, sweating, or nausea/vomiting. He does report a very brief period of lightheadedness just prior to falling. He denies hitting his head or any significant injury during the fall, though he does note pain to the right great toe; he believes that he bent it backwards when he fell. Mr Coleman also reports another recent fall about two weeks ago. At that time, he had a scalp laceration and sustained a black eye. He declined to seek medical attention at that time. However, his dqmovz-pl-bdk (present at bedside) reports that he has been unusually sleepy since the recent fall. She has not noticed any other change in mental status, and Mr Coleman has been acting like normal otherwise. They report that he lives alone, though his in-laws come daily to help him at home. Mr Coleman reports that he has been very fatigued lately, and he has had a poor appetite. He is also increasingly His epyucn-zd-szv states that he has not been drinking liquids adequately, though he does not think that he feels dehydrated. He states that he is increasingly short of breath, particularly when walking, but this has not worsened acutely. He also admits that he has not been taking his medications recently other than his oxycodone. Past History - Past Medical History Allergies/Adverse Reactions: Allergies Allergy/AdvReac Type Severity Reaction Status Date / Time No Known Drug Allergies Allergy Verified 08/26/17 12:16 Home Medications: Ambulatory Orders Tamsulosin HCl 0.4 mg PO DAILY 03/26/16 Doxycycline Hyclate 100 mg PO DAILY PRN 08/26/17 Erlotinib HCl [Tarceva] 125 mg PO HS 08/26/17 Anemia: No Asthma: No Cancer: Yes (BLADDER, LUNG CANCER) Cardiac Disorders: Yes (BRADYCARDIA- HAD STRESS TEST CHECKER STOCKER SAID "ok") CVA: No COPD: No CHF: No Dementia: No Diabetes: No GI Disorders: No Disorders: No HTN: No Hypercholesterolemia: Yes Liver Disease: No (ELEVATED LIVER TEST - STOPPED STATINS) Seizures: No Thyroid Disease: No - Surgical History Abdominal Surgery: No Appendectomy: Yes ( A CHILD) Cardiac Surgery: No Cholecystectomy: No Lung Surgery: No Neurologic Surgery: No Orthopedic Surgery: No - Suicide/Smoking/Psychosocial Hx Smoking History: Former smoker Have you smoked in the past 12 months: No If you are a former smoker, when did you quit?: 40 YRS AGO Cigars Per Day: 1 Information on smoking cessation initiated: No Hx Alcohol Use: No Drug/Substance Use Hx: No Substance Use Type: Alcohol Hx Substance Use Treatment: No Review of Systems - Review of Systems Comments:: General: No fevers, no chills, +poor appetite, +weight loss, +generalized fatigue HEENT: No changes in vision, no changes in hearing, no congestion, no sore throat CV: No chest pain, no palpitations, no LE edema Pulm: +SOB, +lung CA GI: No nausea or vomiting, no change in bowel habits, no melena : No frequency, no urgency, no dysuria Musc: No back pain, no joint swelling, no recent injury Skin: No rash, no lesions, no erythema Endo: No excessive thirst, no heat/cold intolerance Heme: No unusual bruising or bleeding, no swollen glands Neuro: +syncope, no numbness/tingling, no focal weakness Vasc: No claudication Psych: No recent change in mood, no SI or HI *Physical Exam - Vital Signs Last Vital Signs Temp Pulse Resp BP Pulse Ox 98.1 F 65 16 164/87 100 09/23/18 12:30 09/23/18 12:30 09/23/18 12:30 09/23/18 12:30 09/23/18 12:30 - Physical Exam Comments: General: Comfortable, no acute distress HEENT: PERRL, EOMI, dry mouth/lips, voice normal, normal neck ROM, no LAD. Healing 3-4cm laceration on left scalp. R eye with surrounding ecchymosis. B/l temporal wasting. Cards: Borderline bradycardia, regular, no murmur appreciated Pulm: Conversational dyspnea. Clear bilaterally. Abd: Soft, nontender, nondistended Ext: Atraumatic. No LE edema. ROM intact. Strength equal bilaterally. R 1st toe TTP, no obvious edema, Vasc: Extremities WWP Skin: Normal color, no rashes or lesions Neuro: A&Ox3, CN grossly intact, normal speech, motor/sensory grossly intact and symmetric Psych: Mood appropriate to situation Moderate Sedation - Procedure Monitoring Vital Signs: Procedure Monitoring Vital Signs Temperature 98.1 F 09/23/18 12:30 Pulse Rate 65 09/23/18 12:30 Respiratory Rate 16 09/23/18 12:30 Blood Pressure 164/87 09/23/18 12:30 O2 Sat by Pulse Oximetry (%) 100 09/23/18 12:30 ED Treatment Course - LABORATORY CBC & Chemistry Diagram: 09/23/18 14:00 09/23/18 14:00 Medical Decision Making - Medical Decision Making 09/23/18 13:17 Bal Coleman is an 88yo man with a PMH of stage 4 lung CA, bradycardia, hypotension who presents after a fall at home with possible syncope. He denies head injury, chest pain, SOB prior to the fall but does report lightheadedness. - h/o bradycardia, no concerns about HR currently - Syncope workup. CBC, chemistry, EKG, CXR, trop - Given previous fall and report of increased sleepiness, will CT head 09/23/18 16:11 - CT head negative for acute pathology, suggests subacute stroke - Labs reviewed. Notable for troponin 0.13. No previous values for comparison. Call placed to Dr Emmanuel, who sees Mr Coleman as an outpatient - Xrays of toe pending - Pt reports pain. He is due for his home oxycodone 10mg. Giving oxycodone/ acetaminophen here for pain - EKG w/ bradycardia. Mobitz type II 09/23/18 16:45 - Spoke to Dr Salinas regarding admission for ACS rule out, syncope. Requesting consult for Dr Calvillo for neurology and MRI brain to evaluate subacute stroke - Will discuss plan with Mr Coleman and his [id number]-[id number]-tbk at bedside. Agree to be admitted for obs. Discussed with Dr Ace. Darlin Coronado PGY1 *DC/Admit/Observation/Transfer Diagnosis at time of Disposition: Syncope, Elevated troponin I level - Discharge Dispostion Decision to Admit order: Yes - Referrals - Patient Instructions - Post Discharge Activity
[2018-09-23] MEDS ORDERED: SODIUM CHLORIDE 0.9% 500 ML INFUS.BAG IV ONE (13:24)
[2018-09-23 14:18] LABS: BASO % 0.5 % (0-2.0); EOS % 0.2 % (0-4.5); HEMATOCRIT 35.3 % (35.4-49); HEMOGLOBIN 12.2 GM/dL (11.7-16.9); LYMPH % 6.5 % (8-40); MCH 30.9 pg (25.7-33.7); MCHC 34.5 g/dl (32.0-35.9); MEAN CELL VOLUME 89.6 fl (80-96); MEAN PLT VOLUME 7.8 fl (7.5-11.1); MONO % 10.4 % (3.8-10.2); NEUT % 82.4 % (42.8-82.8); PLATELET COUNT 118 K/MM3 (134-434); RBC 3.94 M/mm3 (4.00-5.60); RDW 14.3 % (11.9-15.9); WHITE BLOOD COUNT 9.5 K/mm3 (4.0-10.0)
--- NOTE | 2018-09-23 14:55 | PDOC ---
Attending Attestation - Medical Decision Making Documentation prepared by LUIGI Mc, acting as medical dir for Roseanne Ace MD. 09/23/18 16:18 <Vilma Becerril - Last Filed: 09/23/18 16:18> - Resident Resident Name: Enio Hankins - ED Attending Attestation I have performed the following: I have examined & evaluated the patient, The case was reviewed & discussed with the resident, I agree w/resident's findings & plan - HPI HPI: 09/23/18 16:40 HPI 88 Y M, with PMH of bladder cancer (s/p TUR of bladder 10/13/13), stage 4 lung cancer, bradycardia, hypotension, BPH with associated nocturia, and hypercholesterolemia, s/p unwitnessed fall 2/2 weakness, lack of energy and dizziness. Patient reports sitting up in bed this morning, when he felt dizzy and fell. He denies head contusion or LOC. As per patients [id number], pt fell and hit his head two weeks ago with a healed scalp laceration, did not pursue medical treatment, and has been unusually sleepy since. denies current tx for his lung cancer, with Dr Mace Denies fever, chills, chest pain, SOB, palpitation, dizziness, weakness, N, V, D , abdominal pain, bladder and bowel problems, leg swelling, No sick contacts or travel. No new changes in medications, but admits to being non-compliant with daily meds recently. Allergies: NKA Past Medical History: bladder cancer (s/p TUR of bladder 10/13/13), stage 4 lung cancer, bradycardia, hypotension, BPH with associated nocturia, and hypercholesterolemia Social history: Lives with family. No smoking. No alcohol. No illicit drugs. Surgical history: Appendectomy and tonsillectomy PMD: Dr. Mehta [facility] Oncologist: Dr. Audie Mace - Physicial Exam PE: 09/23/18 16:40 NAD, frail appearing. crown of scalp with old laceration. PERRL, EOMI, MMM, nl conjunctiva, anicteric; neck supple. lungs clear, RRR, abdomen soft nontender. VERGARA x4, no focal neuro deficits. No peripheral edema. normal color for ethnicity , WWP. - Medical Decision Making I, Roseanne Ace MD, attest that this document has been prepared under my direction and personally reviewed by me in its entirety. I further attest, that it accurately reflects all work, treatment, procedures and medical decision -making performed by me. See HPI for details Vital signs reviewed, wnl. DDx. 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 Prior notes reviewed, including admissions, discharges and consultations. laboratory results and imaging reviewed, basic labs and lytes wnl, UA pending Cardiac panel_+trop to 0.16- ASA given EKG bradycardia at 44bpm, no interval abnormalities, narrow QRS, ST and T wave segments and morphology normal. Nonspecific T wave abnormalities CT head with subacute left parietal/occipital infarction, likely etiology for his weakness/falls. ED course: no acute events. neuro cs with Dr Calvillo, MRI brain ordered, admit for tele, observation, weakness, with +trop. serial trop/EKG. stroke eval. 09/23/18 16:43 <Roseanne Ace - Last Filed: 09/23/18 16:44>
[2018-09-23 14:59] LABS: ALBUMIN 2.9 g/dl (3.4-5.0); ALK PHOS 122 U/L (45-117); ANION GAP 7 MMOL/L (8-16); BILIRUBIN,TOTAL 0.6 mg/dL (0.2-1); BLOOD UREA NITROGEN 15 mg/dL (7-18); CALCIUM 9.1 mg/dL (8.5-10.1); CHLORIDE 102 mmol/L (98-107); CO2 28 mmol/L (21-32); CREATININE 0.9 mg/dL (0.55-1.3); GLUCOSE,RANDOM 128 mg/dL (74-106); MAGNESIUM 2.4 mg/dL (1.8-2.4); PHOSPHOROUS 2.4 mg/dL (2.5-4.9); POTASSIUM 4.1 mmol/L (3.5-5.1); SGOT/AST 28 U/L (15-37); SGPT/ALT 20 U/L (13-61); SODIUM 137 mmol/L (136-145)
[2018-09-23] MEDS ORDERED: ASPIRIN 325 MG TABLET PO ONE (16:44)
--- NOTE | 2018-09-23 16:46 | HP ---
Admitting History and Physical - Primary Care Physician PCP: Mejia Morse - Admission Chief Complaint: Passed out History of Present Illness: 88 yrs old man H/O adnocarcinoma Lung with Bony Mets diagnosed 05/2016 s/p chemo and Immunopthery now off all treatment since 07/2018, only on pain meds, BPH, chronic bradycardia, lives at home but daughter support him, ambulate with a rollater currently only on Oxycodone PRN, present after an episode of syncope patient is alert and oriented says in the morning when got and drying to get up blacked out and skid over the bed and landed on the floor, hurt Rt big toe, denies any head trauma, no seizure activity, no chest pain or SOB, denies any incontinence, patient lost consciousness for few seconds, 911 was called came to Ed for evaluation, in the Ed patient was AOX3 w/u shows Brdaycardia with Mobitz 1 2nd HB, patient had syncope episode few days ago in with upright postural change from sitting , patient had head trauma but didn't come to ED for evaluation, History Source: Patient - Past Medical History Cardiovascular: Yes: Hyperlipdemia Renal/: Yes: BPH - Past Surgical History Past Surgical History: Yes: TURP - Smoking History Smoking history: Former smoker Have you smoked in the past 12 months: No If you are a former smoker, when did you quit?: 40 YRS AGO - Alcohol/Substance Use Hx Alcohol Use: No History of Substance Use: reports: None - Social History ADL: Independent History of Recent Travel: No Home Medications - Allergies Allergies/Adverse Reactions: Allergies Allergy/AdvReac Type Severity Reaction Status Date / Time No Known Drug Allergies Allergy Verified 08/26/17 12:16 - Home Medications Home Medications: Ambulatory Orders Tamsulosin HCl 0.4 mg PO DAILY 03/26/16 Doxycycline Hyclate 100 mg PO DAILY PRN 08/26/17 Erlotinib HCl [Tarceva] 125 mg PO HS 08/26/17 Family Disease History - Family Disease History Family Disease History: Heart Disease: Father, Other: Mother (lived to 105) Review of Systems - Review of Systems Constitutional: reports: Loss of Appetite, Unintentional Wgt. Loss Eyes: denies: Blind Spots, Blurred Vision, Double Vision HENT: denies: Difficult Swallowing, Ear Discharge, Ear Pain, Epistaxis Neck: reports: Pain on Movement. denies: Decreased ROM, Lumps Cardiovascular: denies: Chest Pain, Edema, Palpitations Respiratory: reports: Exercise Intolerance. denies: Cough, Hemoptysis, Orthopnea Gastrointestinal: reports: Constipation. denies: Abdominal Pain, Bloating Genitourinary: denies: Burning, Discharge Musculoskeletal: reports: Back Pain. 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 Labs: 0 CBC,CMP WBC 9.5 K/mm3 (4.0-10.0) 09/23/18 14:00 RBC 3.94 M/mm3 (4.00-5.60) L 09/23/18 14:00 Hgb 12.2 GM/dL (11.7-16.9) 09/23/18 14:00 Hct 35.3 % (35.4-49) L 09/23/18 14:00 MCV 89.6 fl (80-96) 09/23/18 14:00 MCH 30.9 pg (25.7-33.7) 09/23/18 14:00 MCHC 34.5 g/dl (32.0-35.9) 09/23/18 14:00 RDW 14.3 % (11.9-15.9) 09/23/18 14:00 Plt Count 118 K/MM3 (134-434) L D 09/23/18 14:00 MPV 7.8 fl (7.5-11.1) 09/23/18 14:00 Absolute Neuts (auto) 7.8 K/mm3 (1.5-8.0) 09/23/18 14:00 Neutrophils % 82.4 % (42.8-82.8) 09/23/18 14:00 Lymphocytes % 6.5 % (8-40) L D 09/23/18 14:00 Monocytes % 10.4 % (3.8-10.2) H 09/23/18 14:00 Eosinophils % 0.2 % (0-4.5) 09/23/18 14:00 Basophils % 0.5 % (0-2.0) 09/23/18 14:00 Nucleated RBC % 0 % (0-0) 09/23/18 14:00 Sodium 137 mmol/L (136-145) 09/23/18 14:00 Potassium 4.1 mmol/L (3.5-5.1) 09/23/18 14:00 Chloride 102 mmol/L (98-107) 09/23/18 14:00 Carbon Dioxide 28 mmol/L (21-32) 09/23/18 14:00 Anion Gap 7 MMOL/L (8-16) L 09/23/18 14:00 BUN 15 mg/dL (7-18) 09/23/18 14:00 Creatinine 0.9 mg/dL (0.55-1.3) 09/23/18 14:00 Creat Clearance w eGFR > 60 (>60) 09/23/18 14:00 Random Glucose 128 mg/dL (74-106) H 09/23/18 14:00 Calcium 9.1 mg/dL (8.5-10.1) 09/23/18 14:00 Phosphorus 2.4 mg/dL (2.5-4.9) L 09/23/18 14:00 Magnesium 2.4 mg/dL (1.8-2.4) 09/23/18 14:00 Total Bilirubin 0.6 mg/dL (0.2-1) 09/23/18 14:00 AST 28 U/L (15-37) 09/23/18 14:00 ALT 20 U/L (13-61) 09/23/18 14:00 Alkaline Phosphatase 122 U/L (45-117) H 09/23/18 14:00 Creatine Kinase 94 U/L (26-308) 09/23/18 14:00 Troponin I 0.13 ng/ml (0.00-0.05) H 09/23/18 14:00 Total Protein 6.0 g/dl (6.4-8.2) L 09/23/18 14:00 Albumin 2.9 g/dl (3.4-5.0) L 09/23/18 14:00 Imaging - Results Cat Scan: Report Reviewed (Left occiptal and Left parietal , Acute to suba cute infarct) EKG: Report Reviewed (HR 44 bradycardia, normal QTC Mobits 1 2nd HB) Problem List - Problems (1) Syncope Assessment/Plan: Most likely orthostatic but considering EKG finding and 2nd Degree HB can be bradycradia induced , orthostatic BP, fall precautions, Tele monitoring. ECHO serial CE cardiology consult is called from ED Code(s): R55 - SYNCOPE AND COLLAPSE (2) Carcinoma, lung Assessment/Plan: diagnosed in 05/2016 s/p Chemo and Immunotherapy last therapy was on 07/2018 now stopped all treatment on pain meds patient has bony mets Code(s): C34.90 - MALIGNANT NEOPLASM OF UNSP PART OF UNSP BRONCHUS OR LUNG (3) Bone metastases Assessment/Plan: From [place] Lung Code(s): C79.51 - SECONDARY MALIGNANT NEOPLASM OF BONE (4) Elevated troponin I level Assessment/Plan: mildly elevated trop I can be due to tumor no chest pain or SOB will F/U serial CE and ECHO Cardiology consult is called from the ED Code(s): R74.8 - ABNORMAL LEVELS OF OTHER SERUM ENZYMES (5) Mobitz (type) I (Wenckebach's) atrioventricular block Assessment/Plan: hemodynamically stable tele monitor will f/u cardiology recommondation. Code(s): I44.1 - ATRIOVENTRICULAR BLOCK, SECOND DEGREE (6) Stroke Assessment/Plan: acute to sub acute Left parietal and occipital ischemic infarct recommenced to F/U MRI neuro chesck PT, Neurology conult, recived ASA in the ED Code(s): I63.9 - CEREBRAL INFARCTION, UNSPECIFIED (7) Hyperlipidemia Assessment/Plan: on statin Code(s): E78.5 - HYPERLIPIDEMIA, UNSPECIFIED (8) BPH (benign prostatic hyperplasia) Assessment/Plan: off Flomax Code(s): N40.0 - BENIGN PROSTATIC HYPERPLASIA WITHOUT LOWER URINRY TRACT SYMP
[2018-09-23] MEDS ORDERED: ERLOTINIB HCL PO SCH (22:00)
[2018-09-23] MEDS: oxyCODONE HCL 5 MG TABLET PO PRN (22:12)
[2018-09-23 23:01] VITALS: BMI 22.4
[2018-09-24] MEDS: oxyCODONE HCL 5 MG TABLET PO PRN ×3 (04:17→21:25)
[2018-09-24 08:27] LABS: ALBUMIN 2.6 g/dl (3.4-5.0); ALK PHOS 115 U/L (45-117); ANION GAP 7 MMOL/L (8-16); BILIRUBIN,TOTAL 0.7 mg/dL (0.2-1); BLOOD UREA NITROGEN 14 mg/dL (7-18); CALCIUM 8.6 mg/dL (8.5-10.1); CHLORIDE 104 mmol/L (98-107); CO2 26 mmol/L (21-32); CREATININE 0.9 mg/dL (0.55-1.3); GLUCOSE,RANDOM 79 mg/dL (74-106); POTASSIUM 4.2 mmol/L (3.5-5.1); SGOT/AST 26 U/L (15-37); SGPT/ALT 17 U/L (13-61); SODIUM 137 mmol/L (136-145); TOT PROT 5.5 g/dl (6.4-8.2)
[2018-09-24] MEDS ORDERED: TAMSULOSIN HCL 0.4 MG CAP PO SCH (08:30)
--- NOTE | 2018-09-24 08:56 | PN ---
Progress Note, Physician Chief Complaint: No new complaints - Current Medication List Current Medications: Active Medications Acetaminophen (Tylenol -) 325 mg PO Q6H PRN PRN Reason: PAIN Atorvastatin Calcium (Lipitor -) 20 mg PO HS [facility] Enoxaparin Sodium (Lovenox -) 30 mg SQ DAILY [facility] Last Admin: 09/24/18 12:19 Dose: Not Given Non-Formulary Medication (Erlotinib Hcl [Tarceva]) 125 mg PO HS [facility] Oxycodone HCl (Roxicodone -) 10 mg PO Q6H PRN PRN Reason: PAIN LEVEL 6-10 Tamsulosin HCl (Flomax -) 0.4 mg PO DAILY@0830 [facility] Tuberculin PPD (Tubersol ([facility]) 5ml Vial) 5 units ID ONCE ONE Stop: 09/24/18 12:43 - Objective Vital Signs: Vital Signs Temperature 98.1 F 09/24/18 02:00 Pulse Rate 65 09/24/18 04:20 Respiratory Rate 22 H 09/24/18 04:20 Blood Pressure 130/50 L 09/24/18 04:20 O2 Sat by Pulse Oximetry (%) 99 09/23/18 20:15 Elderly Frail man not in distress HEENT: Mm moist, healed superficial laceraetion on the scalp NECK: No JVD No BRuit CHEST: Mild tenderess CTA B/L CVS: S1S2 irr Bradycardia ABD: no distention, non tender Bs + EXT: No edema feet, no calf tenderness 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 Of note, also 2.3 X 1.4 cm L occipital infarct, suspicious for mets.) Problem List - Problems (1) Syncope Assessment/Plan: No arrythmia new event on tele monitor, as per Cardiology earlier evaluated by EP no indication for pacemaker ECHO is normal , will educate postural training and PO Hydration. Dc Code(s): R55 - SYNCOPE AND COLLAPSE (2) Carcinoma, lung Assessment/Plan: diagnosed in 05/2016 s/p Chemo and Immunotherapy last therapy was on 07/2018 now stopped all treatment on pain meds patient has bony mets, MRI shows brain mets patient and family is aware about the result dont want any further evaluation will consider palliative care. Code(s): C34.90 - MALIGNANT NEOPLASM OF UNSP PART OF UNSP BRONCHUS OR LUNG (3) Bone metastases Assessment/Plan: From [place] Lung Code(s): C79.51 - SECONDARY MALIGNANT NEOPLASM OF BONE (4) Elevated troponin I level Assessment/Plan: mildly elevated flat trop I can be due to tumor no chest pain or SOB will F/U serial CE and ECHO Cardiology consult is called from the ED Code(s): R74.8 - ABNORMAL LEVELS OF OTHER SERUM ENZYMES (5) Mobitz (type) I (Wenckebach's) atrioventricular block Assessment/Plan: hemodynamically stable Dc telemonitor on patient request as per cardiology previously evaluated.. Code(s): I44.1 - ATRIOVENTRICULAR BLOCK, SECOND DEGREE (6) Stroke Assessment/Plan: acute to sub acute Left parietal and occipital ischemic infarct recommenced MRI shows ? Mets, finding discussed with the patient and daughter doesn't want further evaluation, neurolgy evaluated recommended asa, statin will cont same. Code(s): I63.9 - CEREBRAL INFARCTION, UNSPECIFIED (7) Hyperlipidemia Assessment/Plan: on statin Code(s): E78.5 - HYPERLIPIDEMIA, UNSPECIFIED (8) BPH (benign prostatic hyperplasia) Assessment/Plan: off Flomax Code(s): N40.0 - BENIGN PROSTATIC HYPERPLASIA WITHOUT LOWER URINRY TRACT SYMP (9) Palliative care patient Assessment/Plan: Patient martines davanced [place] Lung with Bony mets now possible Brain mets , not on any chenmotherapy or cancer treatment will consult palliative care PT and Possible placement to [facility]. Code(s): Z51.5 - ENCOUNTER FOR PALLIATIVE CARE
--- NOTE | 2018-09-24 10:02 | ECHO ---
Name: SUSANASTEPHANI Maharaj Exam:Adult Echocardiogram Study Date: 09/24/2018 08:44 AM Age: 88 yrs Reason For Study: SYNCOPE Height: 70 in Weight: 150 lb BSA: 1.8 m2 MMode/2D Measurements & Calculations IVSd: 1.0 cm Ao root diam: 2.5 cm LVIDd: 4.5 cm LA dimension: 2.3 cm LVIDs: 2.8 cm LVPWd: 1.1 cm EDV(Teich): 93.1 ml LVOT diam: 2.0 cm ESV(Teich): 29.5 ml LAV (MOD-bp): 59.3 ml Doppler Measurements & Calculations MV E max enrike: 82.0 cm/sec Ao V2 max: 185.4 cm/sec MV A max enrike: 93.6 cm/sec Ao max P.8 mmHg MV E/A: 0.88 AI P1/2t: 793.5 msec MV dec time: 0.24 sec MARIAJOSE(V,D): 2.5 cm2 AI max enrike: 439.4 cm/sec LV V1 max P.2 mmHg AI max P.2 mmHg LV V1 max: 143.1 cm/sec AI dec slope: 162.2 cm/sec2 MR max enrike: 345.8 cm/sec TR max enrike: 267.9 cm/sec MR max P.8 mmHg TR max P.8 mmHg PA V2 max: 168.3 cm/sec Med Peak E' Enrike: 8.6 cm/sec PA max P.3 mmHg Med E/e': 9.5 Lat Peak E' Enrike: 7.7 cm/sec Lat E/e': 10.6 PI Vmax: 126.2 cm/sec Left Ventricle Left ventricular systolic function is normal. Ejection Fraction = 55-60%. Right Ventricle The right ventricle is normal in size and function. Atria The left atrium is mildly dilated. Mitral Valve Redundant elongated chordae are noted. There is no mitral valve stenosis. There is mild mitral regurg itation. Tricuspid Valve The tricuspid valve is normal in structure and function. There is mild tricuspid regurgitation. Right ventricular systolic pressure is elevated at 30-40mmHg. Aortic Valve There is mild aortic sclerosis.;. No hemodynamically significant valvular aortic stenosis. Mild aorti c regurgitation. Pulmonic Valve The pulmonic valve is not well seen, but is grossly normal. There is no pulmonic valvular stenosis. Great Vessels Mild aortic root dilatation. Pericardium/Pleura There is no pericardial effusion. Interpretation Summary Left ventricular systolic function is normal. Ejection Fraction = 55-60%. The right ventricle is normal in size and function. The left atrium is mildly dilated. There is mild mitral regurgitation. There is mild tricuspid regurgitation. Right ventricular systolic pressure is elevated at 30-40mmHg. Mild aortic regurgitation. Mild aortic root dilatation. There is no pericardial effusion. MD Jackson *Susana 09/24/2018 10:02 AM
--- NOTE | 2018-09-24 10:05 | CONSULT ---
Consult - text type - Consultation Consultation Note: Neurology Chief Complaint: Passed out History of Present Illness: 88 yrs old man H/O adnocarcinoma Lung with Bony Mets diagnosed 05/2016 s/p chemo and Immunopthery now off all treatment since 07/2018, only on pain meds, BPH, chronic bradycardia, lives at home but daughter support him, ambulate with a rollater currently only on Oxycodone PRN, presented after an episode of syncope. He reported he got up in the morning and then blacked out and skid over the bed and landed on the floor, hurt Rt big toe, denied any head trauma, no seizure activity, no chest pain or SOB, denies any incontinence, patient lost consciousness for few seconds, 911 was called came to Ed for evaluation, in the Ed patient was AOX3 w/u shows Brdaycardia with Mobitz 1 2nd HB, patient had syncope episode few days ago in with upright postural change from sitting , patient had head trauma but didn't come to ED for evaluation. CT head was completed and along with MRI brain, reviewed and discussed with patient and hospitalist in detail, demonstrated 3 frontal, 2 parietal acute appearing infarcts along with R frontal infarct possibly subacute. Of note, also 2.3 X 1.4 cm L occipital infarct, suspicious for mets. Discussed with patient and did not seem interested in further workup or treatment. Did recommended ASA and Statin, though further Onc evaluation with defer to primary team in conjunction with coordination with family. - Past Medical History Cardiovascular: Yes: Hyperlipdemia Renal/: Yes: BPH - Past Surgical History Past Surgical History: Yes: TURP - Smoking History Smoking history: Former smoker Have you smoked in the past 12 months: No If you are a former smoker, when did you quit?: 40 YRS AGO - Alcohol/Substance Use Hx Alcohol Use: No History of Substance Use: reports: None - Social History ADL: Independent History of Recent Travel: No Home Medications - Allergies Allergies/Adverse Reactions: Allergies Allergy/AdvReac Type Severity Reaction Status Date / Time No Known Drug Allergies Allergy Verified 08/26/17 12:16 - Home Medications Home Medications: Ambulatory Orders Tamsulosin HCl 0.4 mg PO DAILY 03/26/16 Doxycycline Hyclate 100 mg PO DAILY PRN 08/26/17 Erlotinib HCl [Tarceva] 125 mg PO HS 08/26/17 Family Disease History - Family Disease History Family Disease History: Heart Disease: Father, Other: Mother (lived to 105) Review of Systems - Review of Systems Constitutional: reports: Loss of Appetite, Unintentional Wgt. Loss Eyes: denies: Blind Spots, Blurred Vision, Double Vision HENT: denies: Difficult Swallowing, Ear Discharge, Ear Pain, Epistaxis Neck: reports: Pain on Movement. denies: Decreased ROM, Lumps Cardiovascular: denies: Chest Pain, Edema, Palpitations Respiratory: reports: Exercise Intolerance. denies: Cough, Hemoptysis, Orthopnea Gastrointestinal: reports: Constipation. denies: Abdominal Pain, Bloating Genitourinary: denies: Burning, Discharge Musculoskeletal: reports: Back Pain. denies: Crepitus Neurological: denies: Change in LOC, Change in Speech, Confusion Physical Examination Vital Signs Period Temp Pulse Resp BP Sys/Lay Pulse Ox Last 24 Hr 98 F-98.3 F 50-75 16-22 114-164/40-87 96-100 Gen: Awake, alert, responds to questions Card: RRR, nml S1,S2 Resp: Normal symmetric effort, lungs clear to auscultation Abdomen: Soft, nontender, bowel sounds active Musculoskeletal: Adequate range of motion without significant deformity Head atraumatic and normocephalic CN: PERRL, EOMI intact, no apparent facial droop, no abnormalities in facial sensation, palate elevates, uvula and tongue midline Motor: Limited effort, moves extremities equally Sensory: Intact ot LT Coordination: Intact on [id number] testing Gait: Deferred Labs: 0 CBC,CMP WBC 9.5 K/mm3 (4.0-10.0) 09/23/18 14:00 RBC 3.94 M/mm3 (4.00-5.60) L 09/23/18 14:00 Hgb 12.2 GM/dL (11.7-16.9) 09/23/18 14:00 Hct 35.3 % (35.4-49) L 09/23/18 14:00 MCV 89.6 fl (80-96) 09/23/18 14:00 MCH 30.9 pg (25.7-33.7) 09/23/18 14:00 MCHC 34.5 g/dl (32.0-35.9) 09/23/18 14:00 RDW 14.3 % (11.9-15.9) 09/23/18 14:00 Plt Count 118 K/MM3 (134-434) L D 09/23/18 14:00 MPV 7.8 fl (7.5-11.1) 09/23/18 14:00 Absolute Neuts (auto) 7.8 K/mm3 (1.5-8.0) 09/23/18 14:00 Neutrophils % 82.4 % (42.8-82.8) 09/23/18 14:00 Lymphocytes % 6.5 % (8-40) L D 09/23/18 14:00 Monocytes % 10.4 % (3.8-10.2) H 09/23/18 14:00 Eosinophils % 0.2 % (0-4.5) 09/23/18 14:00 Basophils % 0.5 % (0-2.0) 09/23/18 14:00 Nucleated RBC % 0 % (0-0) 09/23/18 14:00 Sodium 137 mmol/L (136-145) 09/23/18 14:00 Potassium 4.1 mmol/L (3.5-5.1) 09/23/18 14:00 Chloride 102 mmol/L (98-107) 09/23/18 14:00 Carbon Dioxide 28 mmol/L (21-32) 09/23/18 14:00 Anion Gap 7 MMOL/L (8-16) L 09/23/18 14:00 BUN 15 mg/dL (7-18) 09/23/18 14:00 Creatinine 0.9 mg/dL (0.55-1.3) 09/23/18 14:00 Creat Clearance w eGFR > 60 (>60) 09/23/18 14:00 Random Glucose 128 mg/dL (74-106) H 09/23/18 14:00 Calcium 9.1 mg/dL (8.5-10.1) 09/23/18 14:00 Phosphorus 2.4 mg/dL (2.5-4.9) L 09/23/18 14:00 Magnesium 2.4 mg/dL (1.8-2.4) 09/23/18 14:00 Total Bilirubin 0.6 mg/dL (0.2-1) 09/23/18 14:00 AST 28 U/L (15-37) 09/23/18 14:00 ALT 20 U/L (13-61) 09/23/18 14:00 Alkaline Phosphatase 122 U/L (45-117) H 09/23/18 14:00 Creatine Kinase 94 U/L (26-308) 09/23/18 14:00 Troponin I 0.13 ng/ml (0.00-0.05) H 09/23/18 14:00 Total Protein 6.0 g/dl (6.4-8.2) L 09/23/18 14:00 Albumin 2.9 g/dl (3.4-5.0) L 09/23/18 14:[address] head, MRI brain reviewed Plan: 88 yrs old man H/O adnocarcinoma Lung with Bony Mets diagnosed 05/2016 s/p chemo and Immunopthery now off all treatment since 07/2018, only on pain meds, BPH, chronic bradycardia, lives at home but daughter support him, ambulate with a rollater currently only on Oxycodone PRN, presented after an episode of syncope. CT head was completed and along with MRI brain, reviewed and discussed with patient and hospitalist in detail, demonstrated 3 frontal, 2 parietal acute appearing infarcts along with R frontal infarct possibly subacute. Of note , also 2.3 X 1.4 cm L occipital infarct, suspicious for mets. Discussed with patient and did not seem interested in further workup or treatment. Did recommended ASA and Statin, though further Onc evaluation with defer to primary team in conjunction with coordination with family. Consider Carotid doppler, echo to evaluate for embolic etiology given distribution, though small lacunes also suspicious for small vessel disease. Cardiology follow up.
--- NOTE | 2018-09-24 10:26 | EKG ---
Test Reason : Blood Pressure : / mmHG Vent. Rate : 056 BPM Atrial Rate : 056 BPM P-R Int : 272 ms QRS Dur : 094 ms QT Int : 342 ms P-R-T Axes : 076 -33 -42 degrees QTc Int : 330 ms SINUS BRADYCARDIA WITH 1ST DEGREE A-V BLOCK LEFT AXIS DEVIATION NONSPECIFIC ST ABNORMALITY ABNORMAL ECG Confirmed by MIRANDA DURAN MD ([id number]) on 09/24/2018 10:26:05 AM Referred By: Confirmed By:MIRANDA DURAN MD
--- NOTE | 2018-09-24 10:32 | EKG ---
Test Reason : Blood Pressure : / mmHG Vent. Rate : 044 BPM Atrial Rate : 073 BPM P-R Int : 000 ms QRS Dur : 090 ms QT Int : 432 ms P-R-T Axes : 054 -20 -07 degrees QTc Int : 369 ms POOR DATA QUALITY, INTERPRETATION MAY BE ADVERSELY AFFECTED SINUS RHYTHM WITH 2ND DEGREE A-V BLOCK (MOBITZ I) WITH 2:1 A-V CONDUCTION NONSPECIFIC ST AND T WAVE ABNORMALITY ABNORMAL ECG Confirmed by MIRANDA DURAN MD ([id number]) on 09/24/2018 10:31:35 AM Referred By: Confirmed By:MIRANDA DURAN MD
--- NOTE | 2018-09-24 12:15 | CON.CARD ---
Cardiology Consult (text) - Consultation Consultation Note: cc: syncope hpi: 88 m hx htn, hld, lung ca with mets, here with syncope. Two days ago was sitting in bed and got up and shortly after felt weak and passed out and bumped his head. Did not come to ER. Then yesterday had similar episode and decided to come to ER. No cp sob palps pnd orthopnea le edema. Admits he is not eating /drinking much. Sees me for cardio. pmh: per hpi psh: appendectomy social: no tob fam: no premature cad, scd ros: per hpi; no nvd fever gib hematuria dysuria vision changes abd pain meds: Home Medications Medication Instructions Recorded Tamsulosin HCl 0.4 mg PO DAILY 03/26/16 Doxycycline Hyclate 100 mg PO DAILY PRN 08/26/17 Erlotinib HCl [Tarceva] 125 mg PO HS 08/26/17 pe: Vital Signs Period Temp Pulse Resp BP Sys/Lay Pulse Ox Last 24 Hr 98 F-98.3 F 50-75 16-22 114-164/40-87 96-100 nad no jvd rrr s1s2 no mrg cta bl nl eff aaox3 no le e/c/c abd nt nd pos bs no jaundice diaphoresis pos dp pt no carotid bruits Laboratory Last Values WBC 9.5 K/mm3 (4.0-10.0) 09/23/18 14:00 RBC 3.94 M/mm3 (4.00-5.60) L 09/23/18 14:00 Hgb 12.2 GM/dL (11.7-16.9) 09/23/18 14:00 Hct 35.3 % (35.4-49) L 09/23/18 14:00 MCV 89.6 fl (80-96) 09/23/18 14:00 MCH 30.9 pg (25.7-33.7) 09/23/18 14:00 MCHC 34.5 g/dl (32.0-35.9) 09/23/18 14:00 RDW 14.3 % (11.9-15.9) 09/23/18 14:00 Plt Count 118 K/MM3 (134-434) L D 09/23/18 14:00 MPV 7.8 fl (7.5-11.1) 09/23/18 14:00 Absolute Neuts (auto) 7.8 K/mm3 (1.5-8.0) 09/23/18 14:00 Neutrophils % 82.4 % (42.8-82.8) 09/23/18 14:00 Lymphocytes % 6.5 % (8-40) L D 09/23/18 14:00 Monocytes % 10.4 % (3.8-10.2) H 09/23/18 14:00 Eosinophils % 0.2 % (0-4.5) 09/23/18 14:00 Basophils % 0.5 % (0-2.0) 09/23/18 14:00 Nucleated RBC % 0 % (0-0) 09/23/18 14:00 Sodium 137 mmol/L (136-145) 09/24/18 05:30 Potassium 4.2 mmol/L (3.5-5.1) 09/24/18 05:30 Chloride 104 mmol/L (98-107) 09/24/18 05:30 Carbon Dioxide 26 mmol/L (21-32) 09/24/18 05:30 Anion Gap 7 MMOL/L (8-16) L 09/24/18 05:30 BUN 14 mg/dL (7-18) 09/24/18 05:30 Creatinine 0.9 mg/dL (0.55-1.3) 09/24/18 05:30 Creat Clearance w eGFR > 60 (>60) 09/24/18 05:30 Random Glucose 79 mg/dL (74-106) 09/24/18 05:30 Calcium 8.6 mg/dL (8.5-10.1) 09/24/18 05:30 Phosphorus 2.4 mg/dL (2.5-4.9) L 09/23/18 14:00 Magnesium 2.4 mg/dL (1.8-2.4) 09/23/18 14:00 Total Bilirubin 0.7 mg/dL (0.2-1) 09/24/18 05:30 AST 26 U/L (15-37) 09/24/18 05:30 ALT 17 U/L (13-61) 09/24/18 05:30 Alkaline Phosphatase 115 U/L (45-117) 09/24/18 05:30 Creatine Kinase 94 U/L (26-308) 09/23/18 14:00 Troponin I 0.13 ng/ml (0.00-0.05) H 09/23/18 21:31 Total Protein 5.5 g/dl (6.4-8.2) L 09/24/18 05:30 Albumin 2.6 g/dl (3.4-5.0) L 09/24/18 05:30 TSH 1.64 uIU/ml (0.358-3.74) 09/24/18 05:30 echo 09/2018: nl lv/rv, mild lae, mild mr/tr/ar, rvsp 30-40, mild ao root dil cxr: no chf tele: sr/sb. occ mobitz 1. no pathologic bradycardia ecg: sr, mobitz I, vr 44, no ischemic changes a/p: 88 m hx htn, hld, lung ca with mets, here with syncope. syncope: -seems vasovagal based on description -no signs acs, chf. Tele shows chronic mobitz I avb, no pathologic bradycardia -echo here benign -brain mri shows lacunar infarcts and brain mets, neuro evaluating -rec'd increase po hydration -outpt f/u htn: -stable hld: -stable, diet control trop elevation: -borderline trop with flat trend and nl ck, not c/w acs abnl ecg: -pt with known hx of mobitz I avb which has been evaluated in past with holter, ett, and EP eval, and was decided no indication for pacemaker -no pathologic bradycardia on tele here
[2018-09-24] MEDS: ENOXAPARIN NA (PORCINE) 30 MG/0.3 ML DISP.SYRIN SQ SCH (12:19)
[2018-09-24] MEDS ORDERED: ACETAMINOPHEN 325 MG TABLET (FP) PO PRN (12:40)
[2018-09-24] MEDS ORDERED: TUBERCULIN PPD 5 TU/0.1ML SYRINGE (IN PATIENT USE ONLY) ID ONE (13:30)
[2018-09-24] MEDS ORDERED: oxyCODONE HCL 5 MG TABLET PO ONE (14:00)
[2018-09-24] MEDS ORDERED: PT OWN MED DRAWER 7, Y5N ONE (15:12)
[2018-09-24] MEDS: ATORVASTATIN CA 20 MG TABLET (FP) PO SCH (21:20)
[2018-09-25] MEDS: TAMSULOSIN HCL 0.4 MG CAP PO SCH (08:36)
[2018-09-25] MEDS: ENOXAPARIN NA (PORCINE) 30 MG/0.3 ML DISP.SYRIN SQ SCH (09:44)
--- NOTE | 2018-09-25 09:44 | PN ---
Progress Note, Physician Chief Complaint: No new complaints - Current Medication List Current Medications: Active Medications Acetaminophen (Tylenol -) 325 mg PO Q6H PRN PRN Reason: PAIN 1-3 Atorvastatin Calcium (Lipitor -) 20 mg PO HS [facility] Last Admin: 09/24/18 21:20 Dose: 20 mg Enoxaparin Sodium (Lovenox -) 30 mg SQ DAILY [facility] Last Admin: 09/24/18 12:19 Dose: Not Given Oxycodone HCl (Roxicodone -) 10 mg PO Q6H PRN PRN Reason: PAIN LEVEL 6-10 Last Admin: 09/24/18 21:25 Dose: 10 mg Tamsulosin HCl (Flomax -) 0.4 mg PO DAILY@0830 [facility] Last Admin: 09/25/18 08:36 Dose: 0.4 mg - Objective Vital Signs: Vital Signs Temperature 98.5 F 09/25/18 08:39 Pulse Rate 61 09/25/18 08:39 Respiratory Rate 20 09/25/18 08:39 Blood Pressure 136/54 L 09/25/18 08:39 O2 Sat by Pulse Oximetry (%) 98 09/24/18 21:00 Elderly Frail man not in distress HEENT: Mm moist, healed superficial laceraetion on the scalp NECK: No JVD No BRuit CHEST: Mild tenderess CTA B/L CVS: S1S2 irr Bradycardia ABD: no distention, non tender Bs + EXT: No edema feet, no calf tenderness 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 Dc Code(s): R55 - SYNCOPE AND COLLAPSE (2) Carcinoma, lung Assessment/Plan: diagnosed in 05/2016 s/p Chemo and Immunotherapy last therapy was on 07/2018 now stopped all treatment on pain meds patient has bony mets, MRI shows brain mets patient and family is aware about the result dont want any further evaluation will consider palliative care. Code(s): C34.90 - MALIGNANT NEOPLASM OF UNSP PART OF UNSP BRONCHUS OR LUNG (3) Bone metastases Assessment/Plan: From [place] Lung Code(s): C79.51 - SECONDARY MALIGNANT NEOPLASM OF BONE (4) Elevated troponin I level Assessment/Plan: mildly elevated flat trop I can be due to tumor no chest pain or SOB will F/U serial CE and ECHO Cardiology consult is called from the ED Code(s): R74.8 - ABNORMAL LEVELS OF OTHER SERUM ENZYMES (5) Mobitz (type) I (Wenckebach's) atrioventricular block Assessment/Plan: hemodynamically stable Dc telemonitor on patient request as per cardiology previously evaluated.. Code(s): I44.1 - ATRIOVENTRICULAR BLOCK, SECOND DEGREE (6) Stroke Assessment/Plan: acute to sub acute Left parietal and occipital ischemic infarct recommenced MRI shows ? Mets, finding discussed with the patient and daughter doesn't want further evaluation, neurolgy evaluated recommended asa, statin will cont same. Code(s): I63.9 - CEREBRAL INFARCTION, UNSPECIFIED (7) Hyperlipidemia Code(s): E78.5 - HYPERLIPIDEMIA, UNSPECIFIED (8) BPH (benign prostatic hyperplasia) Assessment/Plan: off Flomax Code(s): N40.0 - BENIGN PROSTATIC HYPERPLASIA WITHOUT LOWER URINRY TRACT SYMP (9) Palliative care patient Code(s): Z51.5 - ENCOUNTER FOR PALLIATIVE CARE
[2018-09-25] MEDS: oxyCODONE HCL 5 MG TABLET PO PRN (12:26)
[2018-09-25] MEDS: ONDANSETRON 4 MG/2 ML VIAL IVPUSH PRN (13:30)
[2018-09-25] MEDS ORDERED: guaiFENesin 200 MG/10 ML 10 ML UNIT-DOSE CUPS PO PRN (14:44)
[2018-09-25] MEDS: LIDOCAINE 5% TOPICAL PATCH TP SCH (17:18)
[2018-09-25 17:34] LABS: BASO % 0.6 % (0-2.0); EOS % 0.1 % (0-4.5); HEMATOCRIT 38.1 % (35.4-49); HEMOGLOBIN 13.3 GM/dL (11.7-16.9); LYMPH % 7.9 % (8-40); MCH 31.6 pg (25.7-33.7); MCHC 34.9 g/dl (32.0-35.9); MEAN CELL VOLUME 90.6 fl (80-96); MEAN PLT VOLUME 8.3 fl (7.5-11.1); MONO % 6.4 % (3.8-10.2); PLATELET COUNT 115 K/MM3 (134-434); RBC 4.21 M/mm3 (4.00-5.60); RDW 14.2 % (11.9-15.9); WHITE BLOOD COUNT 10.4 K/mm3 (4.0-10.0)
[2018-09-25 18:11] LABS: ALBUMIN 2.8 g/dl (3.4-5.0); ALK PHOS 146 U/L (45-117); ANION GAP 9 MMOL/L (8-16); BILIRUBIN,TOTAL 0.7 mg/dL (0.2-1); BLOOD UREA NITROGEN 13 mg/dL (7-18); CALCIUM 9.4 mg/dL (8.5-10.1); CHLORIDE 101 mmol/L (98-107); CO2 27 mmol/L (21-32); CREATININE 0.8 mg/dL (0.55-1.3); GLUCOSE,RANDOM 96 mg/dL (74-106); LIPASE 84 U/L (73-393); POTASSIUM 4.3 mmol/L (3.5-5.1); SGOT/AST 37 U/L (15-37); SGPT/ALT 24 U/L (13-61); SODIUM 136 mmol/L (136-145)
[2018-09-25] MEDS ORDERED: ACETAMINOPHEN 650 MG SUPP.RECT PR PRN (18:24)
[2018-09-25] MEDS ORDERED: ALBUTEROL SO4 2.5/IPRATROPIUM 0.5 INH SOL 3 ML VIAL.NEB. NEB PRN (18:26)
[2018-09-25] MEDS ORDERED: morphine SULFATE 4 MG/ML VIAL IVPUSH PRN (18:28)
[2018-09-25] MEDS: D5-1/2NS+10 MEQ KCL - 10 MEQ/1,000 ML INFUS.BAG IV SCH (18:48)
[2018-09-25] MEDS ORDERED: AMPICILLIN NA/SULBACTAM NA 1.5 GM VIAL ONE (21:12)
[2018-09-25] MEDS ORDERED: SODIUM CHLORIDE 100 ML IVPB ONE (21:12)
[2018-09-25] MEDS: ATORVASTATIN CA 20 MG TABLET (FP) PO SCH (21:36)
[2018-09-25] MEDS: DOCUSATE SODIUM 100 MG CAPSULE (FP) PO SCH (21:36)
[2018-09-25] MEDS: LIDOCAINE PATCH REMOVAL MC SCH (21:37)
[2018-09-25] MEDS: AMPICILLIN NA/SULBACTAM NA 1.5 GM in SODIUM CHLORIDE 100 ML IVPB SCH (21:37)
[2018-09-26] MEDS ORDERED: AMPICILLIN NA/SULBACTAM NA 1.5 GM VIAL ONE ×3 (00:53→17:02)
[2018-09-26] MEDS ORDERED: SODIUM CHLORIDE 100 ML IVPB ONE ×3 (00:53→17:03)
[2018-09-26] MEDS: AMPICILLIN NA/SULBACTAM NA 1.5 GM in SODIUM CHLORIDE 100 ML IVPB SCH ×3 (01:32→17:49)
[2018-09-26 07:39] LABS: BASO % 0.1 % (0-2.0); HEMATOCRIT 34.3 % (35.4-49); HEMOGLOBIN 11.7 GM/dL (11.7-16.9); LYMPH % 4.4 % (8-40); MCH 30.8 pg (25.7-33.7); MCHC 34.3 g/dl (32.0-35.9); MEAN CELL VOLUME 89.8 fl (80-96); MEAN PLT VOLUME 8.5 fl (7.5-11.1); MONO % 4.8 % (3.8-10.2); NEUT % 90.7 % (42.8-82.8); PLATELET COUNT 119 K/MM3 (134-434); RBC 3.81 M/mm3 (4.00-5.60); RDW 14.1 % (11.9-15.9); WHITE BLOOD COUNT 18.6 K/mm3 (4.0-10.0)
[2018-09-26 08:02] LABS: ANION GAP 9 MMOL/L (8-16); BLOOD UREA NITROGEN 13 mg/dL (7-18); CALCIUM 9.1 mg/dL (8.5-10.1); CHLORIDE 101 mmol/L (98-107); CO2 26 mmol/L (21-32); CREATININE 0.9 mg/dL (0.55-1.3); GLUCOSE,RANDOM 108 mg/dL (74-106); POTASSIUM 4.1 mmol/L (3.5-5.1); SODIUM 136 mmol/L (136-145)
[2018-09-26] MEDS: ENOXAPARIN NA (PORCINE) 30 MG/0.3 ML DISP.SYRIN SQ SCH (09:50)
[2018-09-26] MEDS: LIDOCAINE 5% TOPICAL PATCH TP SCH (09:50)
[2018-09-26] MEDS: DOCUSATE SODIUM 100 MG CAPSULE (FP) PO SCH ×2 (09:51→21:06)
[2018-09-26] MEDS: TAMSULOSIN HCL 0.4 MG CAP PO SCH (09:51)
[2018-09-26] MEDS: ONDANSETRON 4 MG/2 ML VIAL IVPUSH PRN (12:03)
[2018-09-26] MEDS: D5-1/2NS+10 MEQ KCL - 10 MEQ/1,000 ML INFUS.BAG IV SCH (13:06)
--- NOTE | 2018-09-26 14:10 | PN ---
Progress Note, Physician Chief Complaint: still feels weak and mild cough - Current Medication List Current Medications: Active Medications Acetaminophen (Tylenol -) 325 mg PO Q6H PRN PRN Reason: PAIN 1-3 Last Admin: 09/25/18 18:10 Dose: 325 mg Acetaminophen (Tylenol Suppository -) 650 mg [place] Q4H PRN PRN Reason: FEVER Albuterol/Ipratropium (Duoneb -) 1 amp NEB Q6H PRN PRN Reason: SHORTNESS OF BREATH Last Admin: 09/25/18 21:06 Dose: 1 amp Atorvastatin Calcium (Lipitor -) 20 mg PO HS [facility] Last Admin: 09/25/18 21:36 Dose: 20 mg Docusate Sodium (Colace -) 100 mg PO BID [facility] Last Admin: 09/26/18 09:51 Dose: Not Given Enoxaparin Sodium (Lovenox -) 30 mg SQ DAILY [facility] Last Admin: 09/26/18 09:50 Dose: 30 mg Guaifenesin (Robitussin -) 10 ml PO Q8H PRN PRN Reason: COUGH Ampicillin Sodium/Sulbactam (Sodium 1.5 gm/ Sodium Chloride) 100 mls @ 200 mls/ hr IVPB Q8H-IV [facility] Last Admin: 09/26/18 09:51 Dose: 200 mls/hr Potassium Chloride/Dextrose/Sod Cl (D5-1/2ns+10 Meq Kcl -) 10 meq in 1,000 mls @ 50 mls/hr IV ASDIR [facility] Last Admin: 09/26/18 13:06 Dose: 50 mls/hr Lidocaine (Lidoderm Patch -) 1 patch TP DAILY [facility] Last Admin: 09/26/18 09:50 Dose: 1 patch Miscellaneous (Lidoderm Patch Removal) 1 each MC DAILY@2200 [facility] Last Admin: 09/25/18 21:37 Dose: 1 each Morphine Sulfate (Morphine Sulfate) 4 mg IVPUSH Q6H PRN PRN Reason: PAIN LEVEL 6-10 Ondansetron HCl (Zofran Injection) 4 mg IVPUSH Q6H PRN PRN Reason: NAUSEA Last Admin: 09/26/18 12:03 Dose: 4 mg Tamsulosin HCl (Flomax -) 0.4 mg PO DAILY@0830 [facility] Last Admin: 09/26/18 09:51 Dose: 0.4 mg - Objective Vital Signs: Vital Signs Temperature 98.1 F 09/26/18 09:39 Pulse Rate 58 L 09/26/18 09:39 Respiratory Rate 18 09/26/18 09:39 Blood Pressure 117/47 L 09/26/18 09:39 O2 Sat by Pulse Oximetry (%) 95 09/26/18 09:00 Elderly Frail man not in distress HEENT: Mm moist, healed superficial laceraetion on the scalp NECK: No JVD No BRuit CHEST: Mild tenderess Minimal crepts CVS: S1S2 irr Bradycardia ABD: no distention, non tender Bs + EXT: No edema feet, no calf tenderness 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 Dc Code(s): R55 - SYNCOPE AND COLLAPSE (2) Carcinoma, lung Assessment/Plan: diagnosed in 05/2016 s/p Chemo and Immunotherapy last therapy was on 07/2018 now stopped all treatment on pain meds patient has bony mets, MRI shows brain mets patient and family is aware about the result dont want any further evaluation will consider palliative care. Code(s): C34.90 - MALIGNANT NEOPLASM OF UNSP PART OF UNSP BRONCHUS OR LUNG (3) Bone metastases Assessment/Plan: From [place] [facility] Code(s): C79.51 - SECONDARY MALIGNANT NEOPLASM OF BONE (4) Elevated troponin I level Assessment/Plan: mildly elevated flat trop I can be due to tumor no chest pain or SOB will F/U serial CE and ECHO Cardiology consult is called from the ED Code(s): R74.8 - ABNORMAL LEVELS OF OTHER SERUM ENZYMES (5) Mobitz (type) I (Wenckebach's) atrioventricular block Assessment/Plan: hemodynamically stable Dc telemonitor on patient request as per cardiology previously evaluated.. Code(s): I44.1 - ATRIOVENTRICULAR BLOCK, SECOND DEGREE (6) Stroke Assessment/Plan: acute to sub acute Left parietal and occipital ischemic infarct recommenced MRI shows ? Mets, finding discussed with the patient and daughter doesn't want further evaluation, neurolgy evaluated recommended asa, statin will cont same. Code(s): I63.9 - CEREBRAL INFARCTION, UNSPECIFIED (7) Hyperlipidemia Assessment/Plan: on statin Code(s): E78.5 - HYPERLIPIDEMIA, UNSPECIFIED (8) BPH (benign prostatic hyperplasia) Assessment/Plan: off Flomax Code(s): N40.0 - BENIGN PROSTATIC HYPERPLASIA WITHOUT LOWER URINRY TRACT SYMP (9) Palliative care patient Assessment/Plan: Patient martines davanced [place] Lung with Bony mets now possible Brain mets , not on any chenmotherapy or cancer treatment will consult palliative care PT and Possible placement to [facility]. Code(s): Z51.5 - ENCOUNTER FOR PALLIATIVE CARE (10) Aspiration pneumonia Assessment/Plan: vomited due to nausea and aspirated developed respiratory distress and hypoxia , spiked fever, put on Nebs , O2 inhalation and IV Unasyn remained afebrile after initial spoike now patient is afebrile TWBC 118 K with Left shift will F/ U clinical course cont IV abx unasyn, nebs, CXr shows congestion, swallow evaluation. Code(s): J69.0 - PNEUMONITIS DUE TO INHALATION OF FOOD AND VOMIT
[2018-09-26] MEDS: LIDOCAINE PATCH REMOVAL MC SCH (21:06)
[2018-09-26] MEDS: ATORVASTATIN CA 20 MG TABLET (FP) PO SCH (21:06)
[2018-09-27] MEDS ORDERED: AMPICILLIN NA/SULBACTAM NA 1.5 GM VIAL ONE ×4 (00:55→17:37)
[2018-09-27] MEDS ORDERED: SODIUM CHLORIDE 100 ML IVPB ONE ×4 (00:56→17:37)
[2018-09-27] MEDS: AMPICILLIN NA/SULBACTAM NA 1.5 GM in SODIUM CHLORIDE 100 ML IVPB SCH ×3 (01:04→17:38)
[2018-09-27 08:20] LABS: BASO % 0.2 % (0-2.0); EOS % 0.4 % (0-4.5); HEMATOCRIT 32.6 % (35.4-49); HEMOGLOBIN 11.2 GM/dL (11.7-16.9); MCH 30.5 pg (25.7-33.7); MCHC 34.4 g/dl (32.0-35.9); MEAN CELL VOLUME 88.9 fl (80-96); MEAN PLT VOLUME 8.1 fl (7.5-11.1); MONO % 7.3 % (3.8-10.2); NEUT % 87.1 % (42.8-82.8); PLATELET COUNT 119 K/MM3 (134-434); RBC 3.67 M/mm3 (4.00-5.60); RDW 14.5 % (11.9-15.9); WHITE BLOOD COUNT 11.5 K/mm3 (4.0-10.0)
[2018-09-27 08:53] LABS: ANION GAP 5 MMOL/L (8-16); BLOOD UREA NITROGEN 15 mg/dL (7-18); CALCIUM 8.6 mg/dL (8.5-10.1); CHLORIDE 102 mmol/L (98-107); CO2 28 mmol/L (21-32); CREATININE 0.7 mg/dL (0.55-1.3); GLUCOSE,RANDOM 89 mg/dL (74-106); POTASSIUM 3.9 mmol/L (3.5-5.1); SODIUM 136 mmol/L (136-145)
--- NOTE | 2018-09-27 09:00 | PN ---
Progress Note (short form) - Note Progress Note: Neurology History of Present Illness: 88 yrs old man H/O adnocarcinoma Lung with Bony Mets diagnosed 05/2016 s/p chemo and Immunopthery now off all treatment since 07/2018, only on pain meds, BPH, chronic bradycardia, lives at home but daughter support him, ambulate with a rollater currently only on Oxycodone PRN, presented after an episode of syncope. He reported he got up in the morning and then blacked out and skid over the bed and landed on the floor, hurt Rt big toe, denied any head trauma, no seizure activity, no chest pain or SOB, denies any incontinence, patient lost consciousness for few seconds, 911 was called came to Ed for evaluation, in the Ed patient was AOX3 w/u shows Brdaycardia with Mobitz 1 2nd HB, patient had syncope episode few days ago in with upright postural change from sitting , patient had head trauma but didn't come to ED for evaluation. CT head was completed and along with MRI brain, reviewed and discussed with patient and hospitalist in detail, demonstrated 3 frontal, 2 parietal acute appearing infarcts along with R frontal infarct possibly subacute. Of note, also 2.3 X 1.4 cm L occipital infarct, suspicious for mets. Discussed with patient and did not seem interested in further workup or treatment. Did recommended ASA and Statin, which he has been on and no acute events over the weekend. Primary team optimizing medically. Getting IV fluids during my visit. Carotid dopplers completed and reviewed, no HD significant stenosis. Echo with LV function normal, EF 55-60% Active Medications Acetaminophen (Tylenol -) 325 mg PO Q6H PRN PRN Reason: PAIN 1-3 Last Admin: 09/25/18 18:10 Dose: 325 mg Acetaminophen (Tylenol Suppository -) 650 mg HI Q4H PRN PRN Reason: FEVER Albuterol/Ipratropium (Duoneb -) 1 amp NEB Q6H PRN PRN Reason: SHORTNESS OF BREATH Last Admin: 09/25/18 21:06 Dose: 1 amp Atorvastatin Calcium (Lipitor -) 20 mg PO HS [facility] Last Admin: 09/26/18 21:06 Dose: 20 mg Docusate Sodium (Colace -) 100 mg PO BID [facility] Last Admin: 09/26/18 21:06 Dose: 100 mg Enoxaparin Sodium (Lovenox -) 30 mg SQ DAILY [facility] Last Admin: 09/26/18 09:50 Dose: 30 mg Guaifenesin (Robitussin -) 10 ml PO Q8H PRN PRN Reason: COUGH Ampicillin Sodium/Sulbactam (Sodium 1.5 gm/ Sodium Chloride) 100 mls @ 200 mls/ hr IVPB Q8H-IV [facility] Last Admin: 09/27/18 01:04 Dose: 200 mls/hr Potassium Chloride/Dextrose/Sod Cl (D5-1/2ns+10 Meq Kcl -) 10 meq in 1,000 mls @ 50 mls/hr IV ASDIR [facility] Last Admin: 09/26/18 13:06 Dose: 50 mls/hr Lidocaine (Lidoderm Patch -) 1 patch TP DAILY [facility] Last Admin: 09/26/18 09:50 Dose: 1 patch Miscellaneous (Lidoderm Patch Removal) 1 each MC DAILY@2200 [facility] Last Admin: 09/26/18 21:06 Dose: 1 each Morphine Sulfate (Morphine Sulfate) 4 mg IVPUSH Q6H PRN PRN Reason: PAIN LEVEL 6-10 Ondansetron HCl (Zofran Injection) 4 mg IVPUSH Q6H PRN PRN Reason: NAUSEA Last Admin: 09/26/18 12:03 Dose: 4 mg Tamsulosin HCl (Flomax -) 0.4 mg PO DAILY@0830 [facility] Last Admin: 09/26/18 09:51 Dose: 0.4 mg Physical Examination Vital Signs Period Temp Pulse Resp BP Sys/Lay Pulse Ox Last 24 Hr 97.6 F-99.4 F 58-67 18-20 114-130/47-80 95 Gen: Awake, alert, responds to questions Card: RRR, nml S1,S2 Resp: Normal symmetric effort, lungs clear to auscultation Abdomen: Soft, nontender, bowel sounds active Musculoskeletal: Adequate range of motion without significant deformity Head atraumatic and normocephalic CN: PERRL, EOMI intact, no apparent facial droop, no abnormalities in facial sensation, palate elevates, uvula and tongue midline Motor: Limited effort, moves extremities equally Sensory: Intact ot LT Coordination: Intact on [id number] testing Gait: Deferred Labs: CBCD WBC 11.5 K/mm3 (4.0-10.0) H 09/27/18 07:45 RBC 3.67 M/mm3 (4.00-5.60) L 09/27/18 07:45 Hgb 11.2 GM/dL (11.7-16.9) L 09/27/18 07:45 Hct 32.6 % (35.4-49) L 09/27/18 07:45 MCV 88.9 fl (80-96) 09/27/18 07:45 MCHC 34.4 g/dl (32.0-35.9) 09/27/18 07:45 RDW 14.5 % (11.9-15.9) 09/27/18 07:45 Plt Count 119 K/MM3 (134-434) L 09/27/18 07:45 MPV 8.1 fl (7.5-11.1) 09/27/18 07:45 CMP Sodium 136 mmol/L (136-145) 09/27/18 07:45 Potassium 3.9 mmol/L (3.5-5.1) 09/27/18 07:45 Chloride 102 mmol/L (98-107) 09/27/18 07:45 Carbon Dioxide 28 mmol/L (21-32) 09/27/18 07:45 Anion Gap 5 MMOL/L (8-16) L 09/27/18 07:45 BUN 15 mg/dL (7-18) 09/27/18 07:45 Creatinine 0.7 mg/dL (0.55-1.3) 09/27/18 07:45 Creat Clearance w eGFR > 60 (>60) 09/27/18 07:45 Calcium 8.6 mg/dL (8.5-10.1) 09/27/18 07:45 Total Bilirubin 0.7 mg/dL (0.2-1) 09/25/18 16:40 AST 37 U/L (15-37) 09/25/18 16:40 ALT 24 U/L (13-61) 09/25/18 16:40 Alkaline Phosphatase 146 U/L (45-117) H 09/25/18 16:40 Total Protein 6.0 g/dl (6.4-8.2) L 09/25/18 16:40 Albumin 2.8 g/dl (3.4-5.0) L 09/25/18 16:[address] head, MRI brain reviewed Plan: 88 yrs old man H/O adnocarcinoma Lung with Bony Mets diagnosed 05/2016 s/p chemo and Immunopthery now off all treatment since 07/2018, only on pain meds, BPH, chronic bradycardia, lives at home but daughter support him, ambulate with a rollater currently only on Oxycodone PRN, presented after an episode of syncope. CT head was completed and along with MRI brain, reviewed and discussed with patient and hospitalist in detail, demonstrated 3 frontal, 2 parietal acute appearing infarcts along with R frontal infarct possibly subacute. Of note , also 2.3 X 1.4 cm L occipital infarct, suspicious for mets. Discussed with patient and did not seem interested in further workup or treatment. Did recommended ASA and Statin, though further Onc evaluation with defer to primary team in conjunction with coordination with family. Primary team optimizing medically. Getting IV fluids during my visit. Carotid dopplers completed and reviewed, no HD significant stenosis. Echo with LV function normal, EF 55-60%. Neurologically stable
[2018-09-27] MEDS: TAMSULOSIN HCL 0.4 MG CAP PO SCH (10:51)
[2018-09-27] MEDS: DOCUSATE SODIUM 100 MG CAPSULE (FP) PO SCH ×2 (10:51→22:43)
[2018-09-27] MEDS: ONDANSETRON 4 MG/2 ML VIAL IVPUSH PRN (10:55)
[2018-09-27] MEDS: ENOXAPARIN NA (PORCINE) 30 MG/0.3 ML DISP.SYRIN SQ SCH (11:03)
[2018-09-27] MEDS: LIDOCAINE 5% TOPICAL PATCH TP SCH (11:03)
[2018-09-27] MEDS: D5-1/2NS+10 MEQ KCL - 10 MEQ/1,000 ML INFUS.BAG IV SCH ×2 (11:03→17:39)
--- NOTE | 2018-09-27 13:36 | CONSULT ---
Admitting History and Physical - Primary Care Physician PCP: Saravanan Reddy - Admission History of Present Illness: . Per EMR- History of Present Illness: 88 yrs old man H/O adnocarcinoma Lung with Bony Mets diagnosed 05/2016 s/p chemo and Immunopthery now off all treatment since 07/2018, only on pain meds, BPH, chronic bradycardia, lives at home but daughter support him, ambulate with a rollater currently only on Oxycodone PRN, present after an episode of syncope patient is alert and oriented says in the morning when got and drying to get up blacked out and skid over the bed and landed on the floor, hurt Rt big toe, denies any head trauma, no seizure activity, no chest pain or SOB, denies any incontinence, patient lost consciousness for few seconds, 911 was called came to Ed for evaluation, in the Ed patient was AOX3 w/u shows Brdaycardia with Mobitz 1 2nd HB, patient had syncope episode few days ago in with upright postural change from sitting , patient had head trauma but didn't come to ED for evaluation, Aspiration pneumonia vomited due to nausea and aspirated developed respiratory distress and hypoxia , spiked fever, put on Nebs , O2 inhalation and IV Unasyn remained afebrile after initial spoike now patient is afebrile TWBC 118 K with Left shift will F/ U clinical course cont IV abx unasyn, nebs, CXr shows congestion, swallow evaluation. CT head /mri-3 frontal, 2 parietal acute appearing infarcts along with R frontal infarct possibly subacute. Of note, also 2.3 X 1.4 cm L occipital infarct, suspicious for mets. History Source: Patient Limitations to Obtaining History: No Limitations - Past Medical History Cardiovascular: Yes: Hyperlipdemia Renal/: Yes: BPH - Past Surgical History Past Surgical History: Yes: TURP - Advance Directives Advance Directives: Yes: DNR - Smoking History Smoking history: Former smoker Have you smoked in the past 12 months: No If you are a former smoker, when did you quit?: 40 YRS AGO - Alcohol/Substance Use Hx Alcohol Use: No History of Substance Use: reports: None - Social History ADL: Independent History of Recent Travel: No History - Admission Reason For Visit: ELAVATED TROPONIN I LEVEL - Diagnostics X-ray: Report Reviewed CT Scan: Report Reviewed MRI: Report Reviewed - General Mental Status: Alert and Oriented, Awake and Alert, Able to Follow Commands Attention: Intact Ability to Follow Directions: Excellent Head/Neck Control: WFL - Hearing Hearing: Impaired, Both Hearing Aide: Yes With Patient: No Speech Evaluation - Communication Primary Language: KHMER Communication: Yes: Within Normal Limits Oral Expression Ability: Yes: No Impairment - Speech Production Able to Make Needs Known: Yes: WNL Intelligibility: Yes: WNL - Speech Characteristics Voice Loudness: Normal Voice Pitch: Yes: Normal Voice Phonatory-based Quality: Yes: Normal Speech Pattern: Normal Speech Clarity: < 100% Nasal Resonance: Normal Articulation: Yes: Precise Rate of Speech: Intact - Language/Auditory Comprehension Follows: Yes: 2 Stage Simple Commands - Language/Verbal Expression Able to Respond to Simple Queries: Yes: WNL Able to Communicate Wants and Needs: Yes: WNL Functional Communication Status: Yes: WNL - 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 Memory: Yes: WNL Short Term Memory: Yes: WNL - Swallow Evaluation/Bedside Assessment Current Nutritional Intake: NPO Oral Secretions: Yes: WFL Dentition: Yes: Adequate Facial Symmetry at Rest: Facial Droop Left Facial Symmetry on Retraction: Symmetrical Facial Movement: Controlled Sensation: Normal Against Resistance Opening: Normal Against Resistance Closing: Normal Pucker Lips: Normal Smile: Normal Lingual Movement: Normal, Symmetric Lingual Speed of Movement: Normal Lingual Movement Strgth Against Opposition: Normal Lingual Movement Characteristics: Normal Velopharyngeal Movement: Normal Laryngeal Elevation: WFL Laryngeal Movement: Able to Palpate Rate of Intake: WFL Bolus Size: WFL Labial Seal: WFL Chewing: WFL Oral Prep Time: WFL A-P Transit: WFL Pocketing: None Timing of Swallow: WFL Coughing/Throat Clear: No Change in Voice: No Recommendations - Speech Evaluation, Impression/Plan Impression: Verbal, appropriate. NPO following vomiting and suspected aspiration PNA. Swallowing overtly intact. Pt would [facility] to go to [facility] for H[facility]ice. - Dysphagia Impressions/Plan Swallowing Skills: [facility] Dysphagia Impressions: No Impairment *Silent aspiration: cannot be R/O at bedside Dysphagia Treatment Plan: Elevate HOB during feed, OOB for meals, OOB for 1 h. after meals - Recommendations Diet Consistency: Regular Medication Administration: Whole with water Liquids: Thin Liquids
--- NOTE | 2018-09-27 15:11 | CONSULT ---
Consultation: REQUESTING PROVIDER: Dr. 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 Brain MRI revealing acute infarct with a 2.3 X 1.4 cm left occipital infarct/ vasogenic edema that is suspicious for mets. ROS: denies fever, chills, cp, sob, change in bowel or bladder. PHYSICAL EXAMINATION Vital Signs - 24 hr 09/26/18 09/26/18 09/26/18 18:00 19:46 22:00 Temperature 98.1 F 99.4 F Pulse Rate 66 65 Respiratory 18 18 20 Rate Blood Pressure 114/54 L 116/64 O2 Sat by Pulse 95 Oximetry (%) 09/27/18 09/27/18 09/27/18 01:41 05:11 09:00 Temperature 98.8 F 98.3 F Pulse Rate 67 64 Respiratory 20 20 Rate Blood Pressure 118/59 L 130/80 O2 Sat by Pulse 95 Oximetry (%) 09/27/18 09/27/18 09:01 13:58 Temperature 98 F 97.9 F Pulse Rate 54 L 53 L Respiratory 16 16 Rate Blood Pressure 143/63 142/69 O2 Sat by Pulse Oximetry (%) GENERAL: pale thin pleasant gentleman HEAD: Normal with no signs of trauma. EYES: Pupils equal, round and reactive to light, extraocular movements intact, sclera anicteric, conjunctiva clear. No lid lag. EARS, NOSE, THROAT: Ears normal, nares patent, oropharynx clear without exudates. Moist mucous membranes. NECK: Normal range of motion, supple without lymphadenopathy, JVD, or masses. Breast/axilla; no masses /lumps/ LUNGS: bilateral LL crackles HEART: Regular rate and rhythm, normal S1 and S2 without murmur, rub or gallop. ABDOMEN: Soft, nontender, not distended, normoactive bowel sounds, no guarding, no rebound, no masses. No hepatomegaly or splenomegaly. MUSCULOSKELETAL: Normal range of motion at all joints. No bony deformities or tenderness. No CVA tenderness. UPPER EXTREMITIES: 2+ pulses, warm, well-perfused. No cyanosis. No clubbing. Cap refill <2 seconds. No peripheral edema. LOWER EXTREMITIES: 2+ pulses, warm, well-perfused. No calf tenderness. No peripheral edema. NEUROLOGICAL: Cranial nerves II-XII intact. Normal speech. PSYCHIATRIC: Cooperative. Good eye contact. Appropriate mood and affect. Laboratory Results - last 24 hr 09/27/18 09/27/18 07:45 07:45 WBC 11.5 H RBC 3.67 L Hgb 11.2 L Hct 32.6 L MCV 88.9 MCH 30.5 MCHC 34.4 RDW 14.5 Plt Count 119 L MPV 8.1 Absolute Neuts (auto) 10.0 H Neutrophils % 87.1 H Lymphocytes % 5.0 L Monocytes % 7.3 Eosinophils % 0.4 D Basophils % 0.2 Nucleated RBC % 0 Sodium 136 Potassium 3.9 Chloride 102 Carbon Dioxide 28 Anion Gap 5 L BUN 15 Creatinine 0.7 Creat Clearance w eGFR > 60 Random Glucose 89 Calcium 8.6 Active Medications Generic Name Dose Route Start Last Admin Trade Name Freq PRN Reason Stop Dose Admin Acetaminophen 325 mg 09/24/18 12:40 09/25/18 18:10 Tylenol - PO 325 mg Q6H PRN Administration PAIN 1-3 Acetaminophen 650 mg 09/25/18 18:24 Tylenol Suppository - [place] Q4H PRN FEVER Albuterol/Ipratropium 1 amp 09/25/18 18:26 09/25/18 21:06 Duoneb - NEB 1 amp Q6H PRN Administration SHORTNESS OF BREATH Atorvastatin Calcium 20 mg 09/24/18 22:00 09/26/18 21:06 Lipitor - PO 20 mg HS [facility] Administration Docusate Sodium 100 mg 09/25/18 22:00 09/27/18 10:51 Colace - PO Not Given BID [facility] Enoxaparin Sodium 30 mg 09/24/18 10:00 09/27/18 11:03 Lovenox - SQ 30 mg DAILY [facility] Administration Guaifenesin 10 ml 09/25/18 14:44 Robitussin - PO Q8H PRN COUGH Ampicillin Sodium/Sulbactam 100 mls @ 200 mls/hr 09/25/18 19:30 09/27/18 11: 01 Sodium 1.5 gm/ Sodium Chloride IVPB 200 mls/hr Q8H-IV [facility] Administration Potassium Chloride/Dextrose/Sod Cl 10 meq in 1,000 mls @ 50 mls/hr 09/25/18 18 :30 09/27/18 11:03 D5-1/2ns+10 Meq Kcl - IV Not Given ASDIR [facility] Lidocaine 1 patch 09/25/18 14:45 09/27/18 11:03 Lidoderm Patch - TP 1 patch DAILY [facility] Administration Miscellaneous 1 each 09/25/18 22:00 09/26/18 21:06 Lidoderm Patch Removal MC 1 each DAILY@2200 [facility] Administration Morphine Sulfate 4 mg 09/25/18 18:28 Morphine Sulfate IVPUSH Q6H PRN PAIN LEVEL 6-10 Ondansetron HCl 4 mg 09/25/18 10:01 09/27/18 10:55 Zofran Injection IVPUSH 4 mg Q6H PRN Administration NAUSEA Tamsulosin HCl 0.4 mg 09/25/18 08:30 09/27/18 10:51 Flomax - PO Not Given DAILY@0830 [facility] ASSESSMENT/PLAN: This is an 88 year old male with 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 Brain MRI reveal ischemic changes and possible brain mets. Adenocarcinoma of lung with bone mets; PNA CVA palliative care -patient wishes no not follow with further chem/rad therapy -IV antibiotic for PNA -possible brain mets on MRI ; with vasogenic edema -pain control -plan for outpatient palliative care/hospice? Dispo: We will continue to follow the patient. Thank you for this consultative opportunity. Visit type - Emergency Visit Emergency Visit: Yes ED Registration Date: 09/24/18 Care time: The patient presented to the Emergency Department on the above date and was hospitalized for further evaluation of their emergent condition. - New Patient This patient is new to me today: Yes Date on this admission: 09/27/18 - Critical Care Critical Care patient: No
--- NOTE | 2018-09-27 19:56 | PN ---
Progress Note (short form) - Note Progress Note: SUBJECTIVE: No complaints, feels okay. Pain adequately controlled. No headache/ visual disturbance. No SOB/Cough/sputum/fever/chills OBJECTIVE: Afebrile, Hemodynamically Stable Last Vital Signs Temp Pulse Resp BP Pulse Ox 98.3 F 59 L 18 128/72 95 09/27/18 17:40 09/27/18 17:40 09/27/18 17:40 09/27/18 17:40 09/27/18 09:00 HEENT -L frontal laceration healing, Normocephalic Heart - S1, S2, RRR Lungs - basal crackles. Abdomen - Soft, non-tender. Bowel Sounds normal. Extremities - no calf tenderness Laboratory Results - last 24 hr 09/27/18 09/27/18 07:45 07:45 WBC 11.5 H RBC 3.67 L Hgb 11.2 L Hct 32.6 L MCV 88.9 MCH 30.5 MCHC 34.4 RDW 14.5 Plt Count 119 L MPV 8.1 Absolute Neuts (auto) 10.0 H Neutrophils % 87.1 H Lymphocytes % 5.0 L Monocytes % 7.3 Eosinophils % 0.4 D Basophils % 0.2 Nucleated RBC % 0 Sodium 136 Potassium 3.9 Chloride 102 Carbon Dioxide 28 Anion Gap 5 L BUN 15 Creatinine 0.7 Creat Clearance w eGFR > 60 Random Glucose 89 Calcium 8.6 Current Medications Generic Name Dose Route Start Last Admin Trade Name Freq PRN Reason Stop Dose Admin Acetaminophen 325 mg 09/24/18 12:40 09/25/18 18:10 Tylenol - PO 325 mg Q6H PRN Administration PAIN 1-3 Acetaminophen 650 mg 09/25/18 18:24 Tylenol Suppository - [place] Q4H PRN FEVER Albuterol/Ipratropium 1 amp 09/25/18 18:26 09/25/18 21:06 Duoneb - NEB 1 amp Q6H PRN Administration SHORTNESS OF BREATH Atorvastatin Calcium 20 mg 09/24/18 22:00 09/26/18 21:06 Lipitor - PO 20 mg HS [facility] Administration Docusate Sodium 100 mg 09/25/18 22:00 09/27/18 10:51 Colace - PO Not Given BID [facility] Enoxaparin Sodium 30 mg 09/24/18 10:00 09/27/18 11:03 Lovenox - SQ 30 mg DAILY [facility] Administration Guaifenesin 10 ml 09/25/18 14:44 Robitussin - PO Q8H PRN COUGH Ampicillin Sodium/Sulbactam 100 mls @ 200 mls/hr 09/25/18 19:30 09/27/18 17: 38 Sodium 1.5 gm/ Sodium Chloride IVPB 200 mls/hr Q8H-IV [facility] Administration Potassium Chloride/Dextrose/Sod Cl 10 meq in 1,000 mls @ 50 mls/hr 09/25/18 18 :30 09/27/18 17:39 D5-1/2ns+10 Meq Kcl - IV 50 mls/hr ASDIR [facility] Administration Lidocaine 1 patch 09/25/18 14:45 09/27/18 11:03 Lidoderm Patch - TP 1 patch DAILY [facility] Administration Miscellaneous 1 each 09/25/18 22:00 09/26/18 21:06 Lidoderm Patch Removal MC 1 each DAILY@2200 [facility] Administration Morphine Sulfate 4 mg 09/25/18 18:28 Morphine Sulfate IVPUSH Q6H PRN PAIN LEVEL 6-10 Ondansetron HCl 4 mg 09/25/18 10:01 09/27/18 10:55 Zofran Injection IVPUSH 4 mg Q6H PRN Administration NAUSEA Tamsulosin HCl 0.4 mg 09/25/18 08:30 09/27/18 10:51 Flomax - PO Not Given DAILY@0830 [facility] ASSESSMENT/PLAN: 88 year old Male with BPH, Chronic Bradycardia, metastatic adenocarcinoma of lung with pulmonary, bone mets s/p Chemotherapy and Immunotherapy, last treatment 08/14 admitted after syncopal episode, found to have findings suspicious for Brain Mets on MRI - 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 1. 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 Comfort Measures, Pain/Symptom management is the goal. Morphine Sulphate prn and Zofran. 2. Syncope secondary to likely brain mets +/- acute infarct/stroke Carotid Doppler - no hemodynamically significant stenosis Echo - normal LV function normal, EF 55-60% Neurologically Stable- no seizure activity. 3. BPH - continue Flomax 4. Aspiration Pneumonia secondary to vomiting during hospital stay. Desaturated and spiked temp. Currently Afebrile/Hemodynamcally Stable. Continue Unasyn. DVT Px - Lovenox SQ Dispo - Hospice/[facility] DNR/DNI Visit type - Emergency Visit Emergency Visit: Yes ED Registration Date: 09/24/18 Care time: The patient presented to the Emergency Department on the above date and was hospitalized for further evaluation of their emergent condition. - New Patient This patient is new to me today: Yes Date on this admission: 09/27/18 - Critical Care Critical Care patient: No - Discharge Referral Referred to [facility] Med P.C.: No
--- NOTE | 2018-09-27 21:51 | PN ---
Teaching Attending Note Name of Resident: Kat Maldonado ATTENDING PHYSICIAN STATEMENT I saw and evaluated the patient. I reviewed the resident's note and discussed the case with the resident. I agree with the resident's findings and plan as documented. 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 Brain MRI reveal ischemic changes and possible brain mets. Adenocarcinoma of lung with bone mets; PNA CVA--- 3 frontal/2 parietal acute infarcts/occipital infarct versus metasases palliative care -patient wishes no not follow with further chem/rad therapy -IV antibiotic for PNA -possible brain mets on MRI ; with vasogenic edema antiemetics ? dexamethasone --low dose hospice placement
[2018-09-27] MEDS ORDERED: PROCHLORPERAZINE INJECTION 10 MG/2 ML VIAL IVPB PRN (22:11)
[2018-09-27] MEDS: LIDOCAINE PATCH REMOVAL MC SCH (22:43)
[2018-09-27] MEDS: ATORVASTATIN CA 20 MG TABLET (FP) PO SCH (22:43)
[2018-09-28] MEDS ORDERED: SODIUM CHLORIDE 100 ML IVPB ONE ×3 (02:09→16:29)
[2018-09-28] MEDS ORDERED: AMPICILLIN NA/SULBACTAM NA 1.5 GM VIAL ONE ×3 (02:09→16:29)
[2018-09-28] MEDS: AMPICILLIN NA/SULBACTAM NA 1.5 GM in SODIUM CHLORIDE 100 ML IVPB SCH ×3 (02:52→17:46)
--- NOTE | 2018-09-28 09:14 | PN ---
Progress Note (short form) - Note Progress Note: Neurology History of Present Illness: 88 yrs old man H/O adnocarcinoma Lung with Bony Mets diagnosed 05/2016 s/p chemo and Immunopthery now off all treatment since 07/2018, only on pain meds, BPH, chronic bradycardia, lives at home but daughter support him, ambulate with a rollater currently only on Oxycodone PRN, presented after an episode of syncope. He reported he got up in the morning and then blacked out and skid over the bed and landed on the floor, hurt Rt big toe, denied any head trauma, no seizure activity, no chest pain or SOB, denies any incontinence, patient lost consciousness for few seconds, 911 was called came to Ed for evaluation, in the Ed patient was AOX3 w/u shows Brdaycardia with Mobitz 1 2nd HB, patient had syncope episode few days ago in with upright postural change from sitting , patient had head trauma but didn't come to ED for evaluation. CT head was completed and along with MRI brain, reviewed and discussed with patient and hospitalist in detail, demonstrated 3 frontal, 2 parietal acute appearing infarcts along with R frontal infarct possibly subacute. Of note, also 2.3 X 1.4 cm L occipital infarct, suspicious for mets. Discussed with patient and did not seem interested in further workup or treatment. Did recommended ASA and Statin, which he had been on and no acute events over the weekend. Primary team optimizing medically. Getting IV fluids during my visit. Carotid dopplers completed and reviewed, no HD significant stenosis. Echo with LV function normal, EF 55-60%. Heme note reviewed, patient does not want further onc intervention. Steroids started by heme. Patient neurologically stable. Active Medications Acetaminophen (Tylenol -) 325 mg PO Q6H PRN PRN Reason: PAIN 1-3 Last Admin: 09/25/18 18:10 Dose: 325 mg Acetaminophen (Tylenol Suppository -) [address] Q4H PRN PRN Reason: FEVER Albuterol/Ipratropium (Duoneb -) 1 amp NEB Q6H PRN PRN Reason: SHORTNESS OF BREATH Last Admin: 09/25/18 21:06 Dose: 1 amp Atorvastatin Calcium (Lipitor -) 20 mg PO HS [facility] Last Admin: 09/27/18 22:43 Dose: 20 mg Dexamethasone Sodium Phosphate (Decadron Injection -) 4 mg IVPB BID [facility] Docusate Sodium (Colace -) 100 mg PO BID [facility] Last Admin: 09/27/18 22:43 Dose: 100 mg Guaifenesin (Robitussin -) 10 ml PO Q8H PRN PRN Reason: COUGH Ampicillin Sodium/Sulbactam (Sodium 1.5 gm/ Sodium Chloride) 100 mls @ 200 mls/ hr IVPB Q8H-IV [facility] Last Admin: 09/28/18 02:52 Dose: 200 mls/hr Potassium Chloride/Dextrose/Sod Cl (D5-1/2ns+10 Meq Kcl -) 10 meq in 1,000 mls @ 50 mls/hr IV ASDIR [facility] Last Admin: 09/27/18 17:39 Dose: 50 mls/hr Lidocaine (Lidoderm Patch -) 1 patch TP DAILY [facility] Last Admin: 09/27/18 11:03 Dose: 1 patch Miscellaneous (Lidoderm Patch Removal) 1 each MC DAILY@2200 [facility] Last Admin: 09/27/18 22:43 Dose: Not Given Morphine Sulfate (Morphine Sulfate) 4 mg IVPUSH Q6H PRN PRN Reason: PAIN LEVEL 6-10 Ondansetron HCl (Zofran Injection) 4 mg IVPUSH Q6H PRN PRN Reason: NAUSEA Last Admin: 09/27/18 10:55 Dose: 4 mg Pantoprazole Sodium (Protonix Iv) 40 mg IVPB DAILY [facility] Prochlorperazine Edisylate (Compazine Injection -) 10 mg IVPB Q8H PRN PRN Reason: NAUSEA AND/OR VOMITING Last Admin: 09/27/18 22:41 Dose: 10 mg Tamsulosin HCl (Flomax -) 0.4 mg PO DAILY@0830 [facility] Last Admin: 09/27/18 10:51 Dose: Not Given Physical Examination Vital Signs Period Temp Pulse Resp BP Sys/Lay Pulse Ox Last 24 Hr 97.9 F-98.4 F 53-77 16-20 101-146/55-72 97 Gen: Awake, alert, responds to questions Card: RRR, nml S1,S2 Resp: Normal symmetric effort, lungs clear to auscultation Abdomen: Soft, nontender, bowel sounds active Musculoskeletal: Adequate range of motion without significant deformity Head atraumatic and normocephalic CN: PERRL, EOMI intact, no apparent facial droop, no abnormalities in facial sensation, palate elevates, uvula and tongue midline Motor: Limited effort, moves extremities equally Sensory: Intact ot LT Coordination: Intact on [id number] testing Gait: Deferred Labs: CBCD WBC 11.5 K/mm3 (4.0-10.0) H 09/27/18 07:45 RBC 3.67 M/mm3 (4.00-5.60) L 09/27/18 07:45 Hgb 11.2 GM/dL (11.7-16.9) L 09/27/18 07:45 Hct 32.6 % (35.4-49) L 09/27/18 07:45 MCV 88.9 fl (80-96) 09/27/18 07:45 MCHC 34.4 g/dl (32.0-35.9) 09/27/18 07:45 RDW 14.5 % (11.9-15.9) 09/27/18 07:45 Plt Count 119 K/MM3 (134-434) L 09/27/18 07:45 MPV 8.1 fl (7.5-11.1) 09/27/18 07:45 CMP Sodium 136 mmol/L (136-145) 09/27/18 07:45 Potassium 3.9 mmol/L (3.5-5.1) 09/27/18 07:45 Chloride 102 mmol/L (98-107) 09/27/18 07:45 Carbon Dioxide 28 mmol/L (21-32) 09/27/18 07:45 Anion Gap 5 MMOL/L (8-16) L 09/27/18 07:45 BUN 15 mg/dL (7-18) 09/27/18 07:45 Creatinine 0.7 mg/dL (0.55-1.3) 09/27/18 07:45 Creat Clearance w eGFR > 60 (>60) 09/27/18 07:45 Random Glucose 89 mg/dL (74-106) 09/27/18 07:45 Calcium 8.6 mg/dL (8.5-10.1) 09/27/18 07:45 Total Bilirubin 0.7 mg/dL (0.2-1) 09/25/18 16:40 AST 37 U/L (15-37) 09/25/18 16:40 ALT 24 U/L (13-61) 09/25/18 16:40 Alkaline Phosphatase 146 U/L (45-117) H 09/25/18 16:40 Total Protein 6.0 g/dl (6.4-8.2) L 09/25/18 16:40 Albumin 2.8 g/dl (3.4-5.0) L 09/25/18 16:40 CARDIAC ENZYMES Creatine Kinase 94 U/L (26-308) 09/23/18 14:00 Troponin I 0.13 ng/ml (0.00-0.05) H 09/23/18 21:[address] head, MRI brain reviewed Plan: 88 yrs old man H/O adnocarcinoma Lung with Bony Mets diagnosed 05/2016 s/p chemo and Immunopthery now off all treatment since 07/2018, only on pain meds, BPH, chronic bradycardia, lives at home but daughter support him, ambulate with a rollater currently only on Oxycodone PRN, presented after an episode of syncope. CT head was completed and along with MRI brain, reviewed and discussed with patient and hospitalist in detail, demonstrated 3 frontal, 2 parietal acute appearing infarcts along with R frontal infarct possibly subacute. Of note , also 2.3 X 1.4 cm L occipital infarct, suspicious for mets. Discussed with patient and did not seem interested in further workup or treatment. Did recommended ASA and Statin, though further Onc evaluation with defer to primary team in conjunction with coordination with family. Primary team optimizing medically. Getting IV fluids during my visit. Carotid dopplers completed and reviewed, no HD significant stenosis. Echo with LV function normal, EF 55-60%. Heme note reviewed, patient does not want further onc intervention. Steroids started by heme. Patient neurologically stable. Discussed with nurse.
[2018-09-28] MEDS: DEXAMETHASONE SOD PHOSPHATE 4 MG/1 ML VIAL IVPB SCH ×2 (10:20→22:24)
[2018-09-28] MEDS: PANTOPRAZOLE SODIUM 40 MG VIAL IVPB SCH (10:20)
[2018-09-28] MEDS: TAMSULOSIN HCL 0.4 MG CAP PO SCH (10:20)
[2018-09-28] MEDS: DOCUSATE SODIUM 100 MG CAPSULE (FP) PO SCH ×2 (10:20→22:24)
[2018-09-28] MEDS: LIDOCAINE 5% TOPICAL PATCH TP SCH ×2 (10:21→19:25)
[2018-09-28] MEDS ORDERED: BISMUTH SUBSALICYLATE 262 MG/15 ML BTL PO PRN (10:23)
--- NOTE | 2018-09-28 12:06 | PN ---
Progress Note, [employer] - Note Progress Note: Selected Entries 09/28/18 09/28/18 09/28/18 01:00 05:00 09:00 Breakfast Diet Tolerated Temperature 98.1 F 98.1 F 97.7 F 09/28/18 09/28/18 09:13 10:00 Breakfast 25% 25% Diet Tolerated Poor Poor Temperature Laboratory Tests 09/26/18 09/27/18 06:45 07:45 WBC 18.6 H 11.5 H Started on reg diet/thin liquids.Pt disliked his lunch. We ordered an alternative and Rd was going in to discuss food choices.
--- NOTE | 2018-09-28 16:02 | PN ---
Progress Note (short form) - Note Progress Note: SUBJECTIVE: No complaints. Pain adequately controlled. No headache/visual disturbance. Has cough, yellow sputum. No SOB/fever/chills/hemoptysis. OBJECTIVE: Afebrile, Hemodynamically Stable Last Vital Signs Temp Pulse Resp BP Pulse Ox 97.7 F 62 18 117/59 L 95 09/28/18 13:21 09/28/18 13:21 09/28/18 13:21 09/28/18 13:21 09/28/18 09:00 HEENT - L frontal laceration healing, Normocephalic. No pharyngeal erythema/ exudate. Heart - S1, S2, RRR Lungs - basal crackles. Abdomen - Soft, non-tender. Bowel Sounds normal. Extremities - no calf tenderness Current Medications Generic Name Dose Route Start Last Admin Trade Name Freq PRN Reason Stop Dose Admin Acetaminophen 325 mg 09/24/18 12:40 09/25/18 18:10 Tylenol - PO 325 mg Q6H PRN Administration PAIN 1-3 Acetaminophen 650 mg 09/25/18 18:24 Tylenol Suppository - [place] Q4H PRN FEVER Albuterol/Ipratropium 1 amp 09/25/18 18:26 09/25/18 21:06 Duoneb - NEB 1 amp Q6H PRN Administration SHORTNESS OF BREATH Atorvastatin Calcium 20 mg 09/24/18 22:00 09/27/18 22:43 Lipitor - PO 20 mg HS [facility] Administration Bismuth Subsalicylate 30 ml 09/28/18 10:23 09/28/18 14:19 Pepto-Bismol Liquid - PO 30 ml Q12H PRN Administration NAUSEA Dexamethasone Sodium Phosphate 4 mg 09/28/18 10:00 09/28/18 10:20 Decadron Injection - IVPB 4 mg BID [facility] Administration Docusate Sodium 100 mg 09/25/18 22:00 09/28/18 10:20 Colace - PO 100 mg BID [facility] Administration Guaifenesin 10 ml 09/25/18 14:44 Robitussin - PO Q8H PRN COUGH Ampicillin Sodium/Sulbactam 100 mls @ 200 mls/hr 09/25/18 19:30 09/28/18 10: 19 Sodium 1.5 gm/ Sodium Chloride IVPB 200 mls/hr Q8H-IV [facility] Administration Potassium Chloride/Dextrose/Sod Cl 10 meq in 1,000 mls @ 50 mls/hr 09/25/18 18 :30 09/27/18 17:39 D5-1/2ns+10 Meq Kcl - IV 50 mls/hr ASDIR [facility] Administration Lidocaine 1 patch 09/25/18 14:45 09/28/18 10:21 Lidoderm Patch - TP 1 patch DAILY [facility] Administration Miscellaneous 1 each 09/25/18 22:00 09/27/18 22:43 Lidoderm Patch Removal MC Not Given DAILY@2200 [facility] Morphine Sulfate 4 mg 09/25/18 18:28 Morphine Sulfate IVPUSH Q6H PRN PAIN LEVEL 6-10 Ondansetron HCl 4 mg 09/25/18 10:01 09/27/18 10:55 Zofran Injection IVPUSH 4 mg Q6H PRN Administration NAUSEA Pantoprazole Sodium 40 mg 09/28/18 10:00 09/28/18 10:20 Protonix Iv IVPB 40 mg DAILY [facility] Administration Prochlorperazine Edisylate 10 mg 09/27/18 22:11 09/27/18 22:41 Compazine Injection - IVPB 10 mg Q8H PRN Administration NAUSEA AND/OR VOMITING Tamsulosin HCl 0.4 mg 09/25/18 08:30 09/28/18 10:20 Flomax - PO 0.4 mg DAILY@0830 [facility] Administration ASSESSMENT/PLAN: 88 year old Male with BPH, Chronic Bradycardia, metastatic adenocarcinoma of lung with pulmonary, bone mets s/p Chemotherapy and Immunotherapy, last treatment 08/14 admitted after syncopal episode, found to have findings suspicious for Brain Mets on MRI - 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 1. 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 Comfort Measures, Pain/Symptom management is the goal. Started on Decadron By Oncology. Morphine Sulphate prn and Zofran. 2. Syncope secondary to likely brain mets +/- acute infarct/stroke Carotid Doppler - no hemodynamically significant stenosis Echo - normal LV function normal, EF 55-60% Neurologically Stable- no seizure activity. 3. BPH - continue Flomax 4. Aspiration Pneumonia secondary to vomiting during hospital stay. Desaturated and spiked temp. Currently Afebrile/Hemodynamcally Stable. Continue Unasyn. DVT Px - Lovenox SQ Dispo - Awaiting transfer to Hospice DNR/DNI Visit type - Emergency Visit Emergency Visit: Yes ED Registration Date: 09/24/18 Care time: The patient presented to the Emergency Department on the above date and was hospitalized for further evaluation of their emergent condition. - New Patient This patient is new to me today: No - Critical Care Critical Care patient: No - Discharge Referral Referred to [facility] No
[2018-09-28] MEDS: D5-1/2NS+10 MEQ KCL - 10 MEQ/1,000 ML INFUS.BAG IV SCH (19:07)
--- NOTE | 2018-09-28 19:07 | PN ---
Teaching Attending Note Name of Resident: Kat Maldonado ATTENDING PHYSICIAN STATEMENT I saw and evaluated the patient. I reviewed the resident's note and discussed the case with the resident. I agree with the resident's findings and plan as documented. SUBJECTIVE: Patient seen and examined Profound lower extremity weakness Decadron begun- low dose Antibiotics for aspiration Discussion with patient about his end of life wishes. He is "ready to pull the pin " at 88 years. Discussed possible other options of evaluation and or treatments to improve quality of life and perhaps enable patient to walk. Not interested in pursuing any additional avenues. Discussed [place] which would seem to be best . Patient tearfully agrees OBJECTIVE: ASSESSMENT AND PLAN:
[2018-09-28] MEDS: ATORVASTATIN CA 20 MG TABLET (FP) PO SCH (22:24)
[2018-09-28] MEDS: LIDOCAINE PATCH REMOVAL MC SCH (22:25)
[2018-09-29] MEDS ORDERED: AMPICILLIN NA/SULBACTAM NA 1.5 GM VIAL ONE ×2 (00:48→09:20)
[2018-09-29] MEDS ORDERED: SODIUM CHLORIDE 100 ML IVPB ONE ×2 (00:48→09:20)
[2018-09-29] MEDS: AMPICILLIN NA/SULBACTAM NA 1.5 GM in SODIUM CHLORIDE 100 ML IVPB SCH ×2 (02:55→09:26)
[2018-09-29] MEDS: TAMSULOSIN HCL 0.4 MG CAP PO SCH (08:22)
--- NOTE | 2018-09-29 09:15 | PN ---
Progress Note (short form) - Note Progress Note: Neurology History of Present Illness: 88 yrs old man H/O adnocarcinoma Lung with Bony Mets diagnosed 05/2016 s/p chemo and Immunopthery now off all treatment since 07/2018, only on pain meds, BPH, chronic bradycardia, lives at home but daughter support him, ambulate with a rollater currently only on Oxycodone PRN, presented after an episode of syncope. He reported he got up in the morning and then blacked out and skid over the bed and landed on the floor, hurt Rt big toe, denied any head trauma, no seizure activity, no chest pain or SOB, denies any incontinence, patient lost consciousness for few seconds, 911 was called came to Ed for evaluation, in the Ed patient was AOX3 w/u shows Brdaycardia with Mobitz 1 2nd HB, patient had syncope episode few days ago in with upright postural change from sitting , patient had head trauma but didn't come to ED for evaluation. CT head was completed and along with MRI brain, reviewed and discussed with patient and hospitalist in detail, demonstrated 3 frontal, 2 parietal acute appearing infarcts along with R frontal infarct possibly subacute. Of note, also 2.3 X 1.4 cm L occipital infarct, suspicious for mets. Discussed with patient and did not seem interested in further workup or treatment. Did recommended ASA and Statin, which he had been on and no acute events over the weekend. Primary team optimizing medically. Getting IV fluids during my visit. Carotid dopplers completed and reviewed, no HD significant stenosis. Echo with LV function normal, EF 55-60%. Heme note reviewed, patient does not want further onc intervention. Steroids started by heme. More awake and alert today, conversive and interactive. Verbalized understanding that he is likely to be [facility] in penitentiary facility. Active Medications Acetaminophen (Tylenol -) 325 mg PO Q6H PRN PRN Reason: PAIN 1-3 Last Admin: 09/25/18 18:10 Dose: 325 mg Acetaminophen (Tylenol Suppository -) 650 mg SD Q4H PRN PRN Reason: FEVER Albuterol/Ipratropium (Duoneb -) 1 amp NEB Q6H PRN PRN Reason: SHORTNESS OF BREATH Last Admin: 09/25/18 21:06 Dose: 1 amp Atorvastatin Calcium (Lipitor -) 20 mg PO HS [facility] Last Admin: 09/28/18 22:24 Dose: 20 mg Bismuth Subsalicylate (Pepto-Bismol Liquid -) 30 ml PO Q12H PRN PRN Reason: NAUSEA Last Admin: 09/28/18 14:19 Dose: 30 ml Dexamethasone Sodium Phosphate (Decadron Injection -) 4 mg IVPB BID [facility] Last Admin: 09/28/18 22:24 Dose: 4 mg Docusate Sodium (Colace -) 100 mg PO BID [facility] Last Admin: 09/28/18 22:24 Dose: 100 mg Guaifenesin (Robitussin -) 10 ml PO Q8H PRN PRN Reason: COUGH Ampicillin Sodium/Sulbactam (Sodium 1.5 gm/ Sodium Chloride) 100 mls @ 200 mls/ hr IVPB Q8H-IV [facility] Last Admin: 09/29/18 02:55 Dose: 200 mls/hr Potassium Chloride/Dextrose/Sod Cl (D5-1/2ns+10 Meq Kcl -) 10 meq in 1,000 mls @ 50 mls/hr IV ASDIR [facility] Last Admin: 09/28/18 19:07 Dose: 50 mls/hr Lidocaine (Lidoderm Patch -) 1 patch TP DAILY [facility] Last Admin: 09/28/18 19:25 Dose: Not Given Miscellaneous (Lidoderm Patch Removal) 1 each MC DAILY@2200 [facility] Last Admin: 09/28/18 22:25 Dose: Not Given Morphine Sulfate (Morphine Sulfate) 4 mg IVPUSH Q6H PRN PRN Reason: PAIN LEVEL 6-10 Ondansetron HCl (Zofran Injection) 4 mg IVPUSH Q6H PRN PRN Reason: NAUSEA Last Admin: 09/27/18 10:55 Dose: 4 mg Pantoprazole Sodium (Protonix Iv) 40 mg IVPB DAILY [facility] Last Admin: 09/28/18 10:20 Dose: 40 mg Prochlorperazine Edisylate (Compazine Injection -) 10 mg IVPB Q8H PRN PRN Reason: NAUSEA AND/OR VOMITING Last Admin: 09/27/18 22:41 Dose: 10 mg Tamsulosin HCl (Flomax -) 0.4 mg PO DAILY@0830 [facility] Last Admin: 09/29/18 08:22 Dose: 0.4 mg Physical Examination Vital Signs Period Temp Pulse Resp BP Sys/Lay Pulse Ox Last 24 Hr 97.7 F-98.9 F 54-63 18-20 117-152/55-67 95 Gen: Awake, alert, responds to questions Card: RRR, nml S1,S2 Resp: Normal symmetric effort, lungs clear to auscultation Abdomen: Soft, nontender, bowel sounds active Musculoskeletal: Adequate range of motion without significant deformity Head atraumatic and normocephalic CN: PERRL, EOMI intact, no apparent facial droop, no abnormalities in facial sensation, palate elevates, uvula and tongue midline Motor: Limited effort, moves extremities equally Sensory: Intact ot LT Coordination: Intact on [id number] testing Gait: Deferred Labs: CBCD WBC 11.5 K/mm3 (4.0-10.0) H 09/27/18 07:45 RBC 3.67 M/mm3 (4.00-5.60) L 09/27/18 07:45 Hgb 11.2 GM/dL (11.7-16.9) L 09/27/18 07:45 Hct 32.6 % (35.4-49) L 09/27/18 07:45 MCV 88.9 fl (80-96) 09/27/18 07:45 MCHC 34.4 g/dl (32.0-35.9) 09/27/18 07:45 RDW 14.5 % (11.9-15.9) 09/27/18 07:45 Plt Count 119 K/MM3 (134-434) L 09/27/18 07:45 MPV 8.1 fl (7.5-11.1) 09/27/18 07:45 CMP Sodium 136 mmol/L (136-145) 09/27/18 07:45 Potassium 3.9 mmol/L (3.5-5.1) 09/27/18 07:45 Chloride 102 mmol/L (98-107) 09/27/18 07:45 Carbon Dioxide 28 mmol/L (21-32) 09/27/18 07:45 Anion Gap 5 MMOL/L (8-16) L 09/27/18 07:45 BUN 15 mg/dL (7-18) 09/27/18 07:45 Creatinine 0.7 mg/dL (0.55-1.3) 09/27/18 07:45 Creat Clearance w eGFR > 60 (>60) 09/27/18 07:45 Random Glucose 89 mg/dL (74-106) 09/27/18 07:45 Calcium 8.6 mg/dL (8.5-10.1) 09/27/18 07:45 Total Bilirubin 0.7 mg/dL (0.2-1) 09/25/18 16:40 AST 37 U/L (15-37) 09/25/18 16:40 ALT 24 U/L (13-61) 09/25/18 16:40 Alkaline Phosphatase 146 U/L (45-117) H 09/25/18 16:40 Total Protein 6.0 g/dl (6.4-8.2) L 09/25/18 16:40 Albumin 2.8 g/dl (3.4-5.0) L 09/25/18 16:40 CARDIAC ENZYMES Creatine Kinase 94 U/L (26-308) 09/23/18 14:00 Troponin I 0.13 ng/ml (0.00-0.05) H 09/23/18 21:[address] head, MRI brain reviewed Plan: 88 yrs old man H/O adnocarcinoma Lung with Bony Mets diagnosed 05/2016 s/p chemo and Immunopthery now off all treatment since 07/2018, only on pain meds, BPH, chronic bradycardia, lives at home but daughter support him, ambulate with a rollater currently only on Oxycodone PRN, presented after an episode of syncope. CT head was completed and along with MRI brain, reviewed and discussed with patient and hospitalist in detail, demonstrated 3 frontal, 2 parietal acute appearing infarcts along with R frontal infarct possibly subacute. Of note , also 2.3 X 1.4 cm L occipital infarct, suspicious for mets. Discussed with patient and did not seem interested in further workup or treatment. Did recommended ASA and Statin, though further Onc evaluation with defer to primary team in conjunction with coordination with family. Primary team optimizing medically. Getting IV fluids during my visit. Carotid dopplers completed and reviewed, no HD significant stenosis. Echo with LV function normal, EF 55-60%. Heme note reviewed, patient does not want further onc intervention. Steroids started by heme. More awake and alert today, conversive and interactive. Verbalized understanding that he is likely to be placed in penitentiary facility.
[2018-09-29] MEDS: LIDOCAINE 5% TOPICAL PATCH TP SCH (09:27)
[2018-09-29] MEDS: PANTOPRAZOLE SODIUM 40 MG VIAL IVPB SCH (09:27)
[2018-09-29] MEDS: DOCUSATE SODIUM 100 MG CAPSULE (FP) PO SCH (09:27)
[2018-09-29] MEDS: DEXAMETHASONE SOD PHOSPHATE 4 MG/1 ML VIAL IVPB SCH (09:27)
--- NOTE | 2018-09-29 10:48 | PN ---
Progress Note, [employer] - Note Progress Note: Selected Entries 09/29/18 09/29/18 09/29/18 01:47 06:00 10:00 Breakfast Diet Tolerated Temperature 98.3 F 98.3 F 97.3 F L 09/29/18 10:06 Breakfast 100% Diet Tolerated Well Temperature Good tolerance. Eating more when he enjoys it. Pending Hospice.
--- NOTE | 2018-09-29 11:58 | DS ---
Physical Examination Vital Signs: Vital Signs Temperature 36.3 C L 09/29/18 10:00 Pulse Rate 51 L 09/29/18 10:00 Respiratory Rate 20 09/29/18 10:00 Blood Pressure 150/60 09/29/18 10:00 O2 Sat by Pulse Oximetry (%) 96 09/29/18 09:00 Constitutional: Yes: Well Nourished, No Distress, Calm Cardiovascular: Yes: Regular Rate and Rhythm. No: Gallop, Murmur, Rub Respiratory: Yes: Regular, CTA Bilaterally. No: Rales, Rhonchi, Wheezes Gastrointestinal: Yes: Normal Bowel Sounds, Soft. No: Distention, Tenderness Extremities: Yes: WNL Edema: No Labs: CBC, BMP 09/27/18 07:45 09/27/18 07:45 Discharge Summary Reason For Visit: ELAVATED TROPONIN I LEVEL Current Active Problems Aspiration pneumonia (Acute) Carcinoma, lung (Acute) Elevated troponin I level (Acute) Mobitz (type) I (Wenckebach's) atrioventricular block (Acute) Palliative care patient (Acute) Stroke (Acute) Syncope (Acute) Hospital Course: Mr Coleman is a pleasant 88 year old male with metastatic lung cancer who presented with syncope. He underwent a full workup and it was decided that he wanted to go to hospice. He was accepted at [facility] and is stable for transfer there for pain control. 31 minutes spent in preparation of this discharge Condition: Stable - Instructions Diet, Activity, Other Instructions: regular diet. activity per comfort. Disposition: TRANSFER ACUTE CARE/OTHER HOSP - Home Medications Comprehensive Discharge Medication List: Ambulatory Orders Tamsulosin HCl 0.4 mg PO DAILY 03/26/16 Acetaminophen Suppository [Tylenol .Suppository -] 650 mg [place] Q4H PRN supp.rect 09/29/18 Acetaminophen [Tylenol .Regular Strength -] 325 mg PO Q6H PRN tablet 09/29/18 Albuterol 2.5/Ipratropium 0.5 [Duoneb -] 1 amp NEB Q6H PRN amp 09/29/18 Atorvastatin Ca [Lipitor] 20 mg PO HS tablet 09/29/18 Dexamethasone Injection [Decadron Injection -] 4 mg IVPB BID vial 09/29/18 Docusate Sodium [Colace -] 100 mg PO BID capsule 09/29/18 Enoxaparin [Lovenox -] 30 mg SQ DAILY disp.syrin 09/29/18 Guaifenesin [Robitussin -] 10 ml PO Q8H PRN cup 09/29/18 Lidocaine 5% Patch [Lidoderm -] 1 patch TP DAILY patch 09/29/18 Lidocaine Patch Removal [Lidoderm Patch Removal] 1 each MC DAILY@2200 each 01/12 Prochlorperazine Injection [Compazine Injection -] 10 mg IVPB Q8H PRN vial 01/12
[2018-09-29 14:57] VITALS: BP 138/65; PULSE 59; TEMP 98
== END 2018-09-29 15:48 | disposition hospice, inpatient (51) | DRG 64 ==
LOC: JER 12:28 → JERBED 17:06 → J4W 19:43 → OBSVTOIN 09-24 11:05 → J7W 09-24 15:32
PROVIDERS: ADMIT Internal Medicine; ATTEND Internal Medicine
DX: I63.9 Cerebral infarction, unspecified (principal); J69.0 Pneumonitis due to inhalation of food and vomit; G93.6 Cerebral edema; C34.90 Malignant neoplasm of unspecified part of unspecified bronchus or lung; C79.51 Secondary malignant neoplasm of bone; C79.31 Secondary malignant neoplasm of brain; R55 Syncope and collapse; N40.0 Benign prostatic hyperplasia without lower urinary tract symptoms; E78.00 Pure hypercholesterolemia, unspecified; Z85.51 Personal history of malignant neoplasm of bladder; I44.1 Atrioventricular block, second degree; E78.5 Hyperlipidemia, unspecified; Z51.5 Encounter for palliative care; R94.31 Abnormal electrocardiogram [ECG] [EKG]; M79.674 Pain in right toe(s); Z66 Do not resuscitate
CPT/HCPCS: 36415; 70450-TC; 70551-TC; 71045-TC-FY; 73660-TC-FY; 80048; 80053; 82550; 83690; 83735; 84100; 84443; 84484; 85025; 93005; 93010; 93306-TC; 93880-TC; 94640; 97116-GP; 97162-GP; 99285-25; G0378